=== PATIENT | female | born 1970 | race Caucasian/White ===

== ENCOUNTER 2024-09-08 18:47 | Emergency (ER) | payer MEDICAID, SELFPAY ==
[2024-09-08 18:50] VITALS: BP 151/90; PULSE 93; RESP 17; TEMP 36.5; O2SAT 100; BMI 21.9
[2024-09-08 19:04] VITALS: PULSE 93; RESP 18; O2SAT 98
--- NOTE | 2024-09-08 19:47 | EKG_ITS ---
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
--- NOTE | 2024-09-08 19:49 | XR_ITS ---
Examination: CT abdomen and pelvis without contrast. Coronal 3-D reconstructions. Sagittal 2-D reconstructions. Date and time of exam:September 08, 2024, 2135 hours INDICATIONS: Left lower abdominal pain and bloody diarrhea beginning last night CTDI: vol (mGy): 5.16 DLP: (mGycm): 241 Technique: Axial images of the abdomen have been obtained, 3 mm slice thickness Intravenous contrast material has not been administered. Low dose protocols were performed. One or more of the following dose reduction techniques were used; automated exposure control, adjustment of the mA and/or KV according to patient size, use of iterative reconstruction technique. Findings: No focal liver or splenic lesion No gallstones No pancreatic or adrenal mass No renal or ureteral calculi, no hydronephrosis No pericecal inflammatory change No bowel obstruction Minimal fluid distention small bowel loops Prominent wall thickening and inflammatory change involving the descending colon portions of the transverse colon sigmoid colon No pelvic mass Urinary bladder intact Prominent osteopenia with prominent thoracolumbar levoscoliosis IMPRESSION: Severe nonspecific colitis, involving transverse descending and sigmoid colon, differential would include ulcerative colitis, Crohn's disease, clinical correlation advised
--- NOTE | 2024-09-08 19:50 | PD.EDADULT ---
ED General RME/HPI General Chief complaint: General Adult/Misc Complain Stated complaint: BLOODY DIARRHEA Time Seen by Provider: 09/08/24 19:44 Arrival date/time: 09/08/24 18:47 CC: Left lower quadrant abdominal pain HPI abrupt onset this morning approximately 7 or 8 AM, ongoing for the past 12 hours persistent in nature no p.o. intake. Patient has had persistent nausea vomiting last vomiting was this morning last round of diarrhea was approximately 45 minutes ago. Patient denies any chest pain. Patient has a significant history of clot in her heart , patient history of an MS, seizure disorder and hypertension. 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 Currently pain is an 8 to a 9 on a 10 scale. Related Data Home Medications ?Medication ?Instructions ?Recorded ?Confirmed amlodipine 5 mg tablet 5 mg PO QDAY 08/08/20 08/08/20 carbamazepine 200 mg tablet 200 mg PO TID 08/08/20 08/08/20 (Tegretol) cyclobenzaprine 10 mg tablet 10 mg PO HS PRN Back Pain 08/08/20 08/08/20 lisinopril 20 1 tab PO QDAY 08/08/20 08/08/20 mg-hydrochlorothiazide 12.5 mg tablet Previous Rx's ?Medication ?Instructions ?Recorded ondansetron HCl 4 mg tablet 4 mg PO Q8H PRN nausea and 02/24/21 (Zofran) vomiting #20 tabs meloxicam 7.5 mg tablet 7.5 mg PO QDAY #10 tabs 01/19/22 methocarbamol 500 mg tablet 500 mg PO BID #12 tabs 01/19/22 dicyclomine 20 mg tablet 20 mg PO QID PRN abdominal pain 11/08/22 #30 tabs diclofenac sodium 1 % topical gel 2 g topical QID #100 grams 06/23/23 (Voltaren Arthritis Pain) naproxen 250 mg tablet 250 mg PO BID PRN pain #10 tabs 06/23/23 ibuprofen 600 mg tablet 600 mg PO Q8H PRN fever or pain 10/29/23 #20 tabs levofloxacin 750 mg tablet 750 mg PO QDAY #5 tabs 11/04/23 nitrofurantoin 100 mg PO BID #14 caps 02/27/24 monohydrate/macrocrystals 100 mg capsule (Macrobid) ondansetron 4 mg disintegrating 4 mg PO Q6H PRN nausea and 02/27/24 tablet vomiting #10 tabs ciprofloxacin HCl 500 mg tablet 500 mg PO BID #14 tabs 09/08/24 (Cipro) dicyclomine 20 mg tablet 20 mg PO BID #20 tabs 09/08/24 metronidazole 500 mg tablet 500 mg PO BID #14 tabs 09/08/24 ondansetron 4 mg disintegrating 4 mg PO Q8H #10 tabs 09/08/24 tablet Allergies Allergy/AdvReac Type Severity Reaction Status Date / Time codeine Allergy Severe Vomiting Verified 02/27/24 15:48 Penicillins Allergy Severe Rash Verified 02/27/24 15:48 Review of Systems Review of Systems Narrative Review of Systems: GEN: No fever, no chills, no weight loss EYES: No discharge, no visual changes, no pain HEENT: No ear pain, no congestion, no sore throat PULM: No shortness of breath, no cough, no congestion CV: No chest pain, no dyspnea on exertion, no palpitations GI: No nausea, no vomiting, no diarrhea, + pain, no constipation : No frequency, no urgency, no dysuria MUSC/SKEL: No joint pain, no back pain SKIN: No rash PSYCH: No hallucinations, no depression HEME/LYMPH: No easy bleeding or bruising tendencies NEURO: No weakness, no headache ED Exam Narrative Physical exam: [General: In moderate discomfort but not in any acute distress, tearful Head normocephalic HEENT: Within acceptable limits Neck is supple nontender Chest equal chest rise nontender to palpation Respiratory: Clear to auscultation no wheezes crackles or rubs CV: Rate rhythm is regular no murmurs rubs or clicks Abdomen left lower quadrant tenderness with palpation reflexive guarding but no rebound tenderness no right lower quadrant or upper abdominal quadrant pain with palpation. Back: No CVA tenderness no spinous process tenderness from cervical spine thoracic and lumbar spine Skin: Intact no petechiae rash induration ulceration or crepitus Extremities: Moving all extremity against resistance cap refill less than 2 seconds neurosensory intact Neuro: Awake alert oriented x3 Glascow coma 15 no focal deficits] Course Quality Measures none Orders Category Date Time Status EKG (ED ONLY) *Do not use* NOW Care 09/08/24 19:47 Completed Saline [Insert IV] NOW Care 09/08/24 19:[address] abdomen pelvis wo con Stat Exams 09/08/24 19:49 Completed EKG (ED Only) Stat Exams 09/08/24 19:47 Draft B-Type Natriuretic Peptide Stat Lab 09/08/24 19:59 Completed CBC Stat Lab 09/08/24 19:59 Completed Comprehensive Metabolic Panel Stat Lab 09/08/24 19:59 Completed HCG,Qualitative Serum Stat Lab 09/08/24 19:59 Completed Lipase Stat Lab 09/08/24 19:59 Completed Magnesium Stat Lab 09/08/24 19:59 Completed Partial Thromboplastin Time Stat Lab 09/08/24 22:00 Completed Prothrombin Time with INR Stat Lab 09/08/24 22:00 Completed Ciprofloxacin HCl [Ciprofloxacin] Med 09/08/24 22:19 Discontinued 500 mg PO X1 ONE Morphine Inj Med 09/08/24 19:47 Discontinued 4 mg IVP X1 ONE Ondansetron Inj [Zofran Inj] Med 09/08/24 19:47 Discontinued 4 mg IV X1 ONE Sodium Chloride 0.9% 1000 ml [Ns] 1,000 ml Med 09/08/24 19:48 Discontinued IV 125 mls/hr Sodium Chloride 0.9% 1000 ml [Ns] 1,000 ml Med 09/08/24 19:48 Discontinued IV 999 mls/hr metroNIDAZOLE [Flagyl] Med 09/08/24 22:19 Discontinued 500 mg PO X1 ONE Vital Signs Vital signs: Vital Signs Temperature 97.7 F 09/08/24 18:50 Pulse Rate 93 09/08/24 18:50 Respiratory Rate 17 09/08/24 18:50 Blood Pressure 151/90 H 09/08/24 18:50 Pulse Oximetry (%) 100 09/08/24 18:50 Oxygen Delivery Method Room Air 09/08/24 18:50 [facility] Patient data External records reviewed:: [facility] previous records and EMS form Clinical information provided by:: patient and EMS Social determinants that could affect healthcare access:: none Patient has the following chronic illnesses:: Hypertension A-fib? How is presenting disease/condition affected by chronic disease/condition?: uneffected by Evaluation data The following diagnostics were reviewed and interpreted by me:: lab results, radiology exam(s) and EKG tracing(s) Lab and/or radiology exams considered but not ordered:: EKG performed at 2049 shows a ventricular to 5 4 HI interval 168 QRS of 93 QTc of 391 the sinus bradycardia. CBC shows no leukocytosis anemia thrombocytopenia CMP shows no significant electrolyte imbalances patient is dehydrated with a BUN of 30 creatinine 1.0 no transaminitis or T. bili elevation Lipase is normal Urine is negative CT of the abdomen shows severe colitis. Interpretation Summary: Significant colitis without any leukocytosis. Patient is resting comfortably. Medications Medications considered but not ordered:: None Medication administrations:: Medication Administration History Discontinued Medications Ciprofloxacin (Ciprofloxacin Hcl 250 Mg Tablet) 500 mg PO X1 ONE Stop: 09/08/24 22:20 Last Admin: 09/08/24 22:24 Dose: 500 mg Documented By: YISEL Sodium Chloride (Ns) 1,000 mls @ 999 mls/hr IV .Q1H1M ONE Stop: 09/08/24 20:48 Last Infusion: 09/08/24 21:48 Dose: Infused Documented By: Admin: 09/08/24 20:29 Dose: 999 mls/hr Documented By: YISEL Sodium Chloride (Ns) 1,000 mls @ 125 mls/hr IV .Q8H SANDRA Stop: 10/08/24 19:47 Last Infusion: 09/08/24 21:47 Dose: Infused Documented By: Admin: 09/08/24 20:33 Dose: 125 mls/hr Documented By: YISEL Metronidazole (Metronidazole 250 Mg Tablet) 500 mg PO X1 ONE Stop: 09/08/24 22:20 Last Admin: 09/08/24 22:24 Dose: 500 mg Documented By: YISEL Morphine Sulfate (Morphine Sulf Inj 10 Mg/Ml Vial) 4 mg IVP X1 ONE Stop: 09/08/24 19:48 Last Admin: 09/08/24 20:32 Dose: 4 mg Documented By: YISEL Ondansetron HCl (Ondansetron Inj 2 Mg/Ml Inj 2 Ml) 4 mg IV X1 ONE; Protocol Stop: 09/08/24 19:48 Last Admin: 09/08/24 20:32 Dose: 4 mg Documented By: YISEL None Consultations Consultation(s) initiated? (list below): No Diagnosis Differential Diagnosis ED Complaint MDM: Diverticulosis diverticulitis colitis Most likely diagnosis given after review of the tests above:: Colitis Admission Indicated Admission indicated?: not indicated Explain why admission is indicated or not indicated:: Stable for outpatient follow-up Admission Request Was there a request for admission?: No Disposition Plan Disposition Plan: Discharge Discharge Attestation Discharge Attestation: The patient and all family members were given an opportunity to ask questions and understood the discharge instructions. Discharge instructions specifically effects, indications for sooner follow up or return to the emergency department, and the expected course of current diagnosis. Patient condition: Stable Medical Decision Making Differential Diagnosis Differential Diagnosis: Diverticulosis diverticulitis colitis Lab Data 09/08/24 19:59 09/08/24 19:59 Labs: Lab Results 09/08/24 09/08/24 Range/Units 19:59 22:00 WBC 9.2 (3.6-11.0) Thou/mm3 RBC 4.47 (4.00-5.20) Miln/mm3 Hgb 13.6 (12.0-16.0) g/dL Hct 40.2 (36.0-46.0) % MCV 90 (80-100) fL MCH 30.4 (25.0-35.0) pg MCHC 33.8 (31.0-37.0) g/dl RDW Std Deviation 40.1 (36.4-46.3) fL Plt Count 270 (140-440) Thou/mm3 Neut % (Auto) 72 (37-80) % Lymph % (Auto) 17 (10-50) % Greenlee % (Auto) 10 (0-12) % Eos % (Auto) 1 (0-10) % Baso % (Auto) 0 (0-2.5) % Neut # (Auto) 6.6 (1.8-7.7) Thou/mm3 Lymph # (Auto) 1.6 (1.0-4.8) Thou/mm3 Greenlee # (Auto) 1.0 H (0.0-0.8) Thou/mm3 Eos # (Auto) 0.1 (0.0-0.5) Thou/mm3 Baso # (Auto) 0.0 (0.0-0.2) Thou/mm3 Immature Gran # (Auto) 0.02 H (0.00-0.00) Thou/mm3 Absolute Nucleated RBC 0.00 (0.00-0.00) Thou/mm3 Immature Gran % 0 (0-0) % Nucleated RBC % 0 (0) /100 WBC PT 11.4 (9.0-12.2) Seconds INR 1.0 (0.9-1.3) APTT 22.8 (22.0-36.0) Seconds Sodium 139 (136-145) mMol/L Potassium 4.0 (3.4-5.1) mMol/L Chloride 102 (98-107) mMol/L Carbon Dioxide 29.6 (20.0-31.0) mMol/L Anion Gap 7 (7-16) BUN 30 H (9-23) mg/dL Creatinine 1.0 (0.6-1.3) mg/dL Estim Creat Clear Calc 51.5 L (>60) mL/min eGFR > 60 (60 - ) See Note BUN/Creatinine Ratio 30 H (12-20) Ratio Glucose 105 (74-106) mg/dL Calculated Osmolality 283 (275-295) Calcium 10.1 (8.3-10.6) mg/dL Corrected Calcium 10.1 (8.5-10.1) mg/dL Magnesium 1.6 (1.6-2.6) mg/dL Total Bilirubin 0.4 (0.3-1.2) mg/dL AST 22 (0-34) U/L ALT 19 (10-49) U/L Alkaline Phosphatase 104 (46-116) U/L B-Natriuretic Peptide 32 (0-100) pg/mL Total Protein 7.5 (5.7-8.2) gm/dL Albumin 4.5 (3.5-5.0) gm/dL Globulin 3.0 (2.3-3.5) gm/dL Albumin/Globulin Ratio 1.5 (1.2-2.2) Lipase 28 (12-53) U/L HCG, Qual Negative Discharge Plan Plan Patient Disposition: HOME (Self Care) Patient condition on transfer: Stable Prescriptions/Referrals Prescriptions/Med Rec: New ciprofloxacin HCl [Cipro] 500 mg tablet 500 mg PO BID Qty: 14 0RF metronidazole 500 mg tablet 500 mg PO BID Qty: 14 0RF dicyclomine 20 mg tablet 20 mg PO BID Qty: 20 0RF ondansetron 4 mg tablet,disintegrating 4 mg PO Q8H Qty: 10 0RF No Action cyclobenzaprine [Flexeril] 10 mg Tablet 10 mg PO HS PRN (Reason: Back Pain) lisinopril-hydrochlorothiazide 20-12.5 mg Tablet 1 tab PO QDAY amlodipine 5 mg Tablet 5 mg PO QDAY carbamazepine [Tegretol] 200 mg Tablet 200 mg PO TID methocarbamol 500 mg tablet 500 mg PO BID Qty: 12 0RF meloxicam 7.5 mg tablet 7.5 mg PO QDAY Qty: 10 0RF ondansetron HCl [Zofran] 4 mg tablet 4 mg PO Q8H PRN (Reason: nausea and vomiting) Qty: 20 0RF naproxen 250 mg tablet 250 mg PO BID PRN (Reason: pain) Qty: 10 0RF diclofenac sodium [Voltaren Arthritis Pain] 1 % gel 2 g topical QID Qty: 100 0RF Rx Instructions: apply to single elbow, wrist or hand; for hand includes palm/fingers/back of hand ondansetron 4 mg tablet,disintegrating 4 mg PO Q6H PRN (Reason: nausea and vomiting) Qty: 10 0RF nitrofurantoin monohyd/m-cryst [Macrobid] 100 mg capsule 100 mg PO BID Qty: 14 0RF Rx Instructions: must administer with a meal/food dicyclomine 20 mg tablet 20 mg PO QID PRN (Reason: abdominal pain) Qty: 30 0RF ibuprofen 600 mg tablet 600 mg PO Q8H PRN (Reason: fever or pain) Qty: 20 0RF levofloxacin 750 mg tablet 750 mg PO QDAY Qty: 5 0RF Referrals: Glo Menard PA-C [Primary Care Provider] - In 1 week Problem List Clinical Impression: Diverticulitis Patient/Caregiver Discharge Instructions Education Materials: ED Diet, [place] (Adult), ED Diverticulitis Additional Instructions: Take all the medications as prescribed follow-up with your primary care doctor if there is worsening of symptoms in spite of all the medications return the emergency room for reevaluation. Follow-up bland diet for the next 10 days. Print Language: Spanish Stand Alone Forms: [place] Award Info., Work/School Release, Patient Portal Info Letter NEYDA/JEWEL Supervising Physician DENISE Supervising Physician: Loreto Estrella ENP
[2024-09-08 20:13] LABS: Basophils % (Auto) 0 % (0-2.5); Eosinophils # (Auto) 0.1 Thou/mm3 (0.0-0.5); Eosinophils % (Auto) 1 % (0-10); Hematocrit 40.2 % (36.0-46.0); Hemoglobin 13.6 g/dL (12.0-16.0); Immature Granulocytes % (Auto) 0 % (0-0); Immature Granulocytes Auto 0.02 Thou/mm3 (0.00-0.00); Lymphocytes # (Auto) 1.6 Thou/mm3 (1.0-4.8); Lymphocytes % (Auto) 17 % (10-50); Mean Corpuscular HGB Conc 33.8 g/dl (31.0-37.0); Mean Corpuscular Hemoglobin 30.4 pg (25.0-35.0); Mean Corpuscular Volume 90 fL (80-100); Monocytes % (Auto) 10 % (0-12); Neutrophils # (Auto) 6.6 Thou/mm3 (1.8-7.7); Neutrophils % (Auto) 72 % (37-80); Nucleated Red Blood Cell % 0 /100 WBC (0); Platelet Count 270 Thou/mm3 (140-440); RDW Standard Deviation 40.1 fL (36.4-46.3); Red Blood Count 4.47 Miln/mm3 (4.00-5.20); White Blood Count 9.2 Thou/mm3 (3.6-11.0)
[2024-09-08] MEDS: SODIUM CHLORIDE 0.9% 1000 ML 1,000 ML 999 ML IV (20:29)
[2024-09-08] MEDS: MORPHINE SULF INJ 10 MG/ML VIAL 4 MG IVP (20:32)
[2024-09-08] MEDS: ONDANSETRON INJ 2 MG/ML INJ 2 ML 4 MG IV (20:32)
[2024-09-08] MEDS: SODIUM CHLORIDE 0.9% 1000 ML 1,000 ML 125 ML IV (20:33)
[2024-09-08 20:43] VITALS: BP 156/104; PULSE 94; RESP 18; O2SAT 100
[2024-09-08 20:43] LABS: B-Type Natriuretic Peptide 32 pg/mL (0-100)
[2024-09-08 20:48] LABS: Alanine Aminotransferase 19 U/L (10-49); Albumin, Serum 4.5 gm/dL (3.5-5.0); Albumin/Globulin Ratio 1.5 (1.2-2.2); Alkaline Phosphatase 104 U/L (46-116); Anion Gap 7 (7-16); Aspartate Amino Transferase 22 U/L (0-34); BUN/Creatinine Ratio 30 Ratio (12-20); Bilirubin,Total 0.4 mg/dL (0.3-1.2); Blood Urea Nitrogen 30 mg/dL (9-23); Calcium 10.1 mg/dL (8.3-10.6); Calcium (Corrected) 10.1 mg/dL (8.5-10.1); Carbon Dioxide 29.6 mMol/L (20.0-31.0); Chloride 102 mMol/L (98-107); Estimated Creatinine Clearance 51.5 mL/min (>60); Glucose 105 mg/dL (74-106); Lipase 28 U/L (12-53); Magnesium 1.6 mg/dL (1.6-2.6); Osmolality,Calculated 283 (275-295); Sodium 139 mMol/L (136-145); Total Protein 7.5 gm/dL (5.7-8.2); eGFR > 60 See Note
[2024-09-08 20:55] LABS: HCG,Qualitative Serum Negative
[2024-09-08] MEDS: metroNIDAZOLE 250 MG TABLET 500 MG PO (22:24)
[2024-09-08] MEDS: CIPROFLOXACIN HCL 250 MG TABLET 500 MG PO (22:24)
[2024-09-08 22:38] LABS: Partial Thromboplastin Time 22.8 Seconds (22.0-36.0); Prothrombin Time 11.4 Seconds (9.0-12.2)
[2024-09-08 22:44] VITALS: BP 147/92; PULSE 68; RESP 18; O2SAT 99
== END 2024-09-08 22:57 | disposition home or self-care (01) ==
PROVIDERS: Registered Nurse General Practice; Emergency Provider Emergency Medicine; PCP Physician Assistant
DX: K57.33 Diverticulitis of large intestine without perforation or abscess with bleeding (principal); R00.1 Bradycardia, unspecified
CPT/HCPCS: 36415; 74176; 80053; 80307; 81001; 83690; 83735; 83880; 84703; 85025; 85610; 85730; 93005; 96361; 96374; 96375; 99284; J2270; J2405; J7030; A9270

== ENCOUNTER 2024-10-06 13:21 | Emergency (ER) | payer MEDICAID, SELFPAY ==
[2024-10-06 13:23] VITALS: BMI 21.0
[2024-10-06 13:41] VITALS: BP 115/83; PULSE 115; RESP 18; TEMP 36.5; O2SAT 100
--- NOTE | 2024-10-06 13:46 | EDNOTE_ITS ---
<Statement entered by Delores Christianson MD - 10/10/24 05:26> As co-signing physician, I was present and available for consult prn. I concur with the plan and care as documented by the midlevel provider. ED General RME/HPI General Chief complaint: Nausea/Vomiting/Diarrhea Stated complaint: N/V & NO BM X2 DAYS Time Seen by Provider: 10/06/24 13:45 Arrival date/time: 10/06/24 13:21 CC: Nausea vomiting constipation HPI ongoing for the past 2 days. No active vomiting at time of exam. No local abdominal pain. Noted to be tachycardic. Patient somewhat anxious. Denies street drugs alcohol takes Tegretol no seizures in the recent history. Related Data Home Medications ?Medication ?Instructions ?Recorded ?Confirmed amlodipine 5 mg tablet 5 mg PO QDAY 08/08/20 carbamazepine 200 mg tablet 200 mg PO TID 08/08/20 (Tegretol) cyclobenzaprine 10 mg tablet 10 mg PO HS PRN Back Pain 08/08/20 08/08/20 lisinopril 20 1 tab PO QDAY 08/08/2008/08 mg-hydrochlorothiazide 12.5 mg tablet Previous Rx's ?Medication ?Instructions ?Recorded ondansetron HCl 4 mg tablet 4 mg PO Q8H PRN nausea and 02/24/21 (Zofran) vomiting #20 tabs meloxicam 7.5 mg tablet 7.5 mg PO QDAY #10 tabs 01/09 07/02 methocarbamol 500 mg tablet 500 mg PO BID #12 tabs 05/02 dicyclomine 20 mg tablet 20 mg PO QID PRN abdominal p ain 11/08/22 #30 tabs diclofenac sodium 1 % topical gel 2 g topical QID #100 grams 06/23/23 (Voltaren Arthritis Pain) naproxen 250 mg tablet 250 mg PO BID PRN pain #10 t abs 06/23/23 ibuprofen 600 mg tablet 600 mg PO Q8H PRN fever or p ain 10/29/23 #20 tabs levofloxacin 750 mg tablet 750 mg PO QDAY #5 tabs 10/10 12/02 nitrofurantoin 100 mg PO BID #14 caps 02/26 monohydrate/macrocrystals 100 mg capsule (Macrobid) ondansetron 4 mg disintegrating 4 mg PO Q6H PRN nausea and 02/27/24 tablet vomiting #10 tabs ciprofloxacin HCl 500 mg tablet 500 mg PO BID #14 tabs 09/08/24 (Cipro) dicyclomine 20 mg tablet 20 mg PO BID #20 tabs metronidazole 500 mg tablet 500 mg PO BID #14 tabs ondansetron 4 mg disintegrating 4 mg PO Q8H #10 tabs 0 09/08/24 tablet ciprofloxacin HCl 500 mg tablet 500 mg PO BID #14 tabs 10/06/24 (Cipro) Allergies Allergy/AdvReac Type Severity Reaction Status Date / Time codeine Allergy Severe Vomiting Verified 10/06/24 13:22 Penicillins Allergy Severe Rash Verified 10/06/24 13:22 Review of Systems Review of Systems Narrative Review of Systems: GEN: No fever, no chills, no weight loss EYES: No discharge, no visual changes, no pain HEENT: No ear pain, no congestion, no sore throat PULM: No shortness of breath, no cough, no congestion CV: No chest pain, no dyspnea on exertion, no palpitations GI: + nausea, + vomiting, no diarrhea, no pain, + constipation : No frequency, no urgency, no dysuria MUSC/SKEL: No joint pain, no back pain SKIN: No rash PSYCH: No hallucinations, no depression HEME/LYMPH: No easy bleeding or bruising tendencies NEURO: No weakness, no headache ED Exam Narrative Physical exam: [General: Anxious but not in any acute distress Head normocephalic HEENT: Within acceptable limits Neck is supple nontender Chest equal chest rise nontender to palpation Respiratory: Clear to auscultation no wheezes crackles or rubs CV: Rate rhythm is regular no murmurs rubs or clicks Abdomen is flat, soft nontender no masses positive bowel sounds all 4 quadrants Back: No CVA tenderness no spinous process tenderness from cervical spine thoracic and lumbar spine Skin: Intact no petechiae rash induration ulceration or crepitus Extremities: Moving all extremity against resistance cap refill less than 2 seconds neurosensory intact Neuro: Awake alert oriented x3 Glascow coma 15 no focal deficits] Course Quality Measures none Orders Category Date Time Status Saline [Insert IV] NOW Care 10/06/24 13:45 Active B-Type Natriuretic Peptide Stat Lab 10/06/24 13:56 Completed CBC Stat Lab 10/06/24 13:56 Completed Comprehensive Metabolic Panel Stat Lab 10/06/24 13:56 Completed Drug Screen,Urine Stat Lab 10/06/24 14:00 Completed Lipase Stat Lab 10/06/24 13:56 Completed Magnesium Stat Lab 10/06/24 13:56 Completed Partial Thromboplastin Time Stat Lab 10/06/24 13:56 Completed Prothrombin Time with INR Stat Lab 10/06/24 13:56 Completed Urinalysis Stat Lab 10/06/24 14:00 Completed Ondansetron Odt [Zofran Odt] Med 10/06/24 13:45 Discontinued 4 mg PO X1 ONE Sodium Chloride 0.9% 1000 ml [Ns] 1,000 ml Med 10/06/24 13:46 Discontinued IV 999 mls/hr cefTRIAXone/D5w 1gm IV premix [Rocephin/D5w 1gm IV Med 10/06/24 14:40 Discontinued premix] 1 gm in 50 ml IV X1 Vital Signs Vital signs: Vital Signs Temperature 97.7 F 10/06/24 13:41 Pulse Rate 115 H 10/06/24 13:41 Respiratory Rate 18 10/06/24 13:41 Blood Pressure 115/83 10/06/24 13:41 Pulse Oximetry (%) 100 10/06/24 13:41 Oxygen Delivery Method Room Air 10/06/24 13:41 Discharge Plan Plan Patient Disposition: HOME (Self Care) Patient condition on transfer: Stable Prescriptions/Referrals Prescriptions/Med Rec: New ciprofloxacin HCl [Cipro] 500 mg tablet 500 mg PO BID Qty: 14 0RF No Action cyclobenzaprine [Flexeril] 10 mg Tablet 10 mg PO HS PRN (Reason: Back Pain) lisinopril-hydrochlorothiazide 20-12.5 mg Tablet 1 tab PO QDAY amlodipine 5 mg Tablet 5 mg PO QDAY carbamazepine [Tegretol] 200 mg Tablet 200 mg PO TID methocarbamol 500 mg tablet 500 mg PO BID Qty: 12 0RF meloxicam 7.5 mg tablet 7.5 mg PO QDAY Qty: 10 0RF ondansetron HCl [Zofran] 4 mg tablet 4 mg PO Q8H PRN (Reason: nausea and vomiting) Qty: 20 0RF naproxen 250 mg tablet 250 mg PO BID PRN (Reason: pain) Qty: 10 0RF diclofenac sodium [Voltaren Arthritis Pain] 1 % gel 2 g topical QID Qty: 100 0RF Rx Instructions: apply to single elbow, wrist or hand; for hand includes palm/fingers/back of hand ondansetron 4 mg tablet,disintegrating 4 mg PO Q6H PRN (Reason: nausea and vomiting) Qty: 10 0RF nitrofurantoin monohyd/m-cryst [Macrobid] 100 mg capsule 100 mg PO BID Qty: 14 0RF Rx Instructions: must administer with a meal/food dicyclomine 20 mg tablet 20 mg PO QID PRN (Reason: abdominal pain) Qty: 30 0RF ibuprofen 600 mg tablet 600 mg PO Q8H PRN (Reason: fever or pain) Qty: 20 0RF levofloxacin 750 mg tablet 750 mg PO QDAY Qty: 5 0RF ciprofloxacin HCl [Cipro] 500 mg tablet 500 mg PO BID Qty: 14 0RF metronidazole 500 mg tablet 500 mg PO BID Qty: 14 0RF dicyclomine 20 mg tablet 20 mg PO BID Qty: 20 0RF ondansetron 4 mg tablet,disintegrating 4 mg PO Q8H Qty: 10 0RF Referrals: Glo Menard PA-C [Primary Care Provider] - In 1 week Problem List Clinical Impression: UTI (urinary tract infection), Methamphetamine abuse Patient/Caregiver Discharge Instructions Education Materials: ED Drug Abuse, ED CYSTITIS Female Adult Print Language: Romansh Stand Alone Forms: [place] Award Info., Patient Portal Info Letter PA/JEWEL Supervising Physician PA/JEWEL Supervising Physician: Hernan Estrella ENP MDM Patient Acuity High Acuity (complete MDM) Clinical Information Provided by: patient Medical Records reviewed [facility] Meds/Rx considered, not ordered None Labs/Rad/Tests considered, not ordered None Labs Lab(s) Interpretation(s): CBC shows no acute leukocytosis anemia thrombocytopenia Coags within acceptable limits CMP shows no acute electrolyte imbalances glucose of 108 no transaminitis or T. bili elevation Urine is turbid positive for leukocyte esterase positive for nitrites WBCs at 192 2+ bacteria UDS positive for methamphetamines and marijuana. Imaging Imaging Interpretation(s): UTI with methamphetamine abuse Medication Administration(s) Medication Administration History Discontinued Medications Sodium Chloride (Ns) 1,000 mls @ 999 mls/hr IV .Q1H1M ONE Stop: 10/06/24 14:46 Last Admin: 10/06/24 14:29 Dose: 999 mls/hr Documented By: KF Ceftriaxone Sodium/Dextrose (Rocephin/D5w 1gm Iv Premix) 1 gm in 50 mls @ 100 mls/hr IV X1 ONE Stop: 10/06/24 15:09 Last Infusion: 10/06/24 15:28 Dose: Infused Documented By: Admin: 10/06/24 14:56 Dose: 100 mls/hr Documented By: ARYA Ondansetron HCl (Ondansetron Odt 4 Mg Tabrap) 4 mg PO X1 ONE; Protocol Stop: 10/06/24 13:46 Last Admin: 10/06/24 14:04 Dose: 4 mg Documented By: KF Diagnosis Differential Diagnosis ED Complaint MDM: UTI pyelonephritis methamphetamine abuse
[2024-10-06 14:02] LABS: Basophils % (Auto) 1 % (0-2.5); Eosinophils % (Auto) 1 % (0-10); Hematocrit 43.4 % (36.0-46.0); Hemoglobin 14.7 g/dL (12.0-16.0); Immature Granulocytes % (Auto) 0 % (0-0); Immature Granulocytes Auto 0.01 Thou/mm3 (0.00-0.00); Lymphocytes # (Auto) 2.1 Thou/mm3 (1.0-4.8); Lymphocytes % (Auto) 34 % (10-50); Mean Corpuscular HGB Conc 33.9 g/dl (31.0-37.0); Mean Corpuscular Volume 92 fL (80-100); Monocytes # (Auto) 0.7 Thou/mm3 (0.0-0.8); Monocytes % (Auto) 10 % (0-12); Neutrophils # (Auto) 3.5 Thou/mm3 (1.8-7.7); Neutrophils % (Auto) 55 % (37-80); Nucleated Red Blood Cell % 0 /100 WBC (0); Platelet Count 288 Thou/mm3 (140-440); RDW Standard Deviation 40.9 fL (36.4-46.3); Red Blood Count 4.74 Miln/mm3 (4.00-5.20); White Blood Count 6.3 Thou/mm3 (3.6-11.0)
[2024-10-06] MEDS: ONDANSETRON ODT 4 MG TABRAP PO (14:04)
[2024-10-06 14:16] LABS: Partial Thromboplastin Time 26.3 Seconds (22.0-36.0); Prothrombin Time 11.3 Seconds (9.0-12.2)
[2024-10-06 14:19] LABS: B-Type Natriuretic Peptide < 20 pg/mL (0-100)
[2024-10-06 14:21] LABS: Alanine Aminotransferase 21 U/L (10-49); Albumin, Serum 4.7 gm/dL (3.5-5.0); Albumin/Globulin Ratio 1.4 (1.2-2.2); Alkaline Phosphatase 105 U/L (46-116); Anion Gap 9 (7-16); Aspartate Amino Transferase 24 U/L (0-34); BUN/Creatinine Ratio 19 Ratio (12-20); Bilirubin,Total 0.5 mg/dL (0.3-1.2); Blood Urea Nitrogen 23 mg/dL (9-23); Carbon Dioxide 28.9 mMol/L (20.0-31.0); Chloride 99 mMol/L (98-107); Creatinine (Component) 1.2 mg/dL (0.6-1.3); Estimated Creatinine Clearance 42.9 mL/min (>60); Globulin 3.3 gm/dL (2.3-3.5); Glucose 108 mg/dL (74-106); Lipase 35 U/L (12-53); Magnesium 1.6 mg/dL (1.6-2.6); Osmolality,Calculated 278 (275-295); Potassium 4.2 mMol/L (3.4-5.1); Sodium 137 mMol/L (136-145); eGFR 54 See Note
[2024-10-06 14:26] LABS: Collection Type, Urine Clean Catch
[2024-10-06] MEDS: SODIUM CHLORIDE 0.9% 1000 ML 1,000 ML 999 ML IV (14:29)
[2024-10-06 14:37] LABS: Bacteria,Urine 2+; Bilirubin,Urine Negative (Negative); Blood,Urine Negative (Negative); Clarity,Urine Turbid (Clear/Hazy); Color,Urine Yellow (Lt Yel-Yel); Glucose, Urine Negative (Negative); Ketones,Urine Negative (Negative); Leukocyte Esterase,Urine Positive (Negative); Nitrite,Urine Positive (Negative); PH,Urine 6.5 (5.0-7.0); Protein,Urine Trace (Neg - Trace); RBC,Urine 10 /hpf (0-3); Specific Gravity,Urine 1.027 (1.001-1.035); Squamous Epithelial Cell,Urine 4 /hpf (0-5); Transitional Epi Cells,Urine 1 /hpf (0-5); WBC,Urine 192 /hpf (0-5)
[2024-10-06] MEDS: cefTRIAXone/D5w 1gm IV premix 1 GM/50 ML BAG IV (14:56)
[2024-10-06 15:15] LABS: Amphetamine/Methamp Scrn,U Positive (Negative); Barbiturate Screen,Urine Negative (Negative); Benzodiazepines Screen,Urine Negative (Negative); Benzoylecgonine Screen, Ur Negative (Negative); Fentanyl Screen,Urine Negative (Negative); Opiate Screen,Urine Negative (Negative); THC Screen,Urine Positive (Negative)
== END 2024-10-06 16:03 | disposition home or self-care (01) ==
PROVIDERS: Registered Nurse General Practice; Emergency Provider Emergency Medicine; PCP Physician Assistant
DX: N39.0 Urinary tract infection, site not specified (principal); F15.10 Other stimulant abuse, uncomplicated
CPT/HCPCS: 36415; 80053; 80307; 81001; 83690; 83735; 83880; 85025; 85610; 85730; 96365; 99284; J0696; J7030; Q0162

== ENCOUNTER 2024-12-07 03:23 | Inpatient (IN) | payer MEDICAID, SELFPAY ==
[2024-12-07] VITALS (14 sets, daily range): BP systolic 118–181; BP diastolic 77–112; PULSE 64–92; RESP 16–19; TEMP 34.8–36.8; O2SAT 97–100; BMI 21.7
--- NOTE | 2024-12-07 04:02 | XR_ITS ---
Examination: CT abdomen and pelvis without contrast. Coronal 3-D reconstructions. Sagittal 2-D reconstructions. Date and time of exam:December 07, 2024, 0628 hours Comparison September 08, 2024 INDICATIONS: Onset abdominal pain today, severe nonspecific colitis pattern and CT abdomen pelvis September 08, 2024 CTDI: vol (mGy): 8. DLP: (mGycm): 450 Technique: Axial images of the abdomen have been obtained, 3 mm slice thickness Intravenous contrast material has not been administered. Low dose protocols were performed. One or more of the following dose reduction techniques were used; automated exposure control, adjustment of the mA and/or KV according to patient size, use of iterative reconstruction technique. Findings: No focal liver or splenic lesions No gallstones Thickening of the gastric mucosa in the antrum, coronal image 68 No pancreatic mass No renal or ureteral calculi, no hydronephrosis The entire colon especially descending colon shows wall thickening and inflammatory change on this noncontrast study No bowel obstruction Atrophic uterus Contracted urinary bladder Advanced degenerative disc disease L3-L4 with prominent thoracolumbar levoscoliosis IMPRESSION: Suspicious for antral gastritis, clinical correlation advised Diffuse nonspecific colitis pattern, differential would include Crohn's disease, ulcerative colitis
--- NOTE | 2024-12-07 04:03 | PD.EDRME ---
Rapid Medical Screening Exam RME Arrival date/time: 12/07/24 03:23 Chief Complaint: Abdominal Pain Time Seen by Provider: 12/07/24 03:29 Vital signs: Vital Signs Pulse Rate 84 12/07/24 03:52 Respiratory Rate 18 12/07/24 03:52 Blood Pressure 118/77 12/07/24 03:52 Pulse Oximetry (%) 98 12/07/24 03:52 Oxygen Delivery Method Room Air 12/07/24 03:52 RME Narrative: generalized abdominal pain x1 hour
[2024-12-07] MEDS: HYDROcodone/APAP 7.5/325 TABLET 1 TAB PO (04:17)
[2024-12-07] MEDS: ONDANSETRON ODT 4 MG TABRAP PO (04:17)
[2024-12-07 05:00] LABS: Basophils # (Auto) 0.1 Thou/mm3 (0.0-0.2); Basophils % (Auto) 0 % (0-2.5); Eosinophils # (Auto) 0.1 Thou/mm3 (0.0-0.5); Eosinophils % (Auto) 0 % (0-10); Hematocrit 47.6 % (36.0-46.0); Hemoglobin 16.0 g/dL (12.0-16.0); Immature Granulocytes Auto 0.07 Thou/mm3 (0.00-0.00); Lymphocytes # (Auto) 1.9 Thou/mm3 (1.0-4.8); Lymphocytes % (Auto) 11 % (10-50); Mean Corpuscular HGB Conc 33.6 g/dl (31.0-37.0); Mean Corpuscular Hemoglobin 30.5 pg (25.0-35.0); Mean Corpuscular Volume 91 fL (80-100); Monocytes # (Auto) 1.4 Thou/mm3 (0.0-0.8); Monocytes % (Auto) 8 % (0-12); Neutrophils # (Auto) 14.3 Thou/mm3 (1.8-7.7); Neutrophils % (Auto) 80 % (37-80); Nucleated Red Blood Cell # 0.00 Thou/mm3 (0.00-0.00); Nucleated Red Blood Cell % 0 /100 WBC (0); Platelet Count 307 Thou/mm3 (140-440); RDW Standard Deviation 42.9 fL (36.4-46.3); Red Blood Count 5.24 Miln/mm3 (4.00-5.20); White Blood Count 17.8 Thou/mm3 (3.6-11.0)
[2024-12-07 05:06] LABS: Collection Type, Urine Clean Catch
[2024-12-07 05:26] LABS: Alanine Aminotransferase 44 U/L (10-49); Albumin, Serum 4.8 gm/dL (3.5-5.0); Albumin/Globulin Ratio 1.5 (1.2-2.2); Alkaline Phosphatase 125 U/L (46-116); Anion Gap 9 (7-16); Aspartate Amino Transferase 45 U/L (0-34); BUN/Creatinine Ratio 23 Ratio (12-20); Bilirubin,Total 0.3 mg/dL (0.3-1.2); Blood Urea Nitrogen 32 mg/dL (9-23); Calcium 10.4 mg/dL (8.3-10.6); Calcium (Corrected) 10.4 mg/dL (8.5-10.1); Carbon Dioxide 28.6 mMol/L (20.0-31.0); Chloride 100 mMol/L (98-107); Creatinine (Component) 1.4 mg/dL (0.6-1.3); Estimated Creatinine Clearance 36.8 mL/min (>60); Globulin 3.2 gm/dL (2.3-3.5); Glucose 157 mg/dL (74-106); Lipase 40 U/L (12-53); Osmolality,Calculated 285 (275-295); Potassium 4.4 mMol/L (3.4-5.1); Sodium 138 mMol/L (136-145); Total Protein 8.0 gm/dL (5.7-8.2); eGFR 45 See Note
[2024-12-07 05:28] LABS: Bacteria,Urine Rare; Bilirubin,Urine Negative (Negative); Blood,Urine Negative (Negative); Clarity,Urine Clear (Clear/Hazy); Color,Urine Yellow (Lt Yel-Yel); Glucose, Urine Negative (Negative); Ketones,Urine Negative (Negative); Leukocyte Esterase,Urine Positive (Negative); Nitrite,Urine Negative (Negative); PH,Urine 5.5 (5.0-7.0); Protein,Urine Negative (Neg - Trace); RBC,Urine 2 /hpf (0-3); Specific Gravity,Urine 1.015 (1.001-1.035); Squamous Epithelial Cell,Urine 10 /hpf (0-5); Urobilinogen,Urine Negative mg/dL (0.0-1.0); WBC,Urine 17 /hpf (0-5)
[2024-12-07 06:12] LABS: HCG Qualitative,Urine Negative
[2024-12-07] MEDS: ONDANSETRON INJ 2 MG/ML INJ 2 ML 4 MG IVP (07:24)
[2024-12-07] MEDS: MORPHINE SULF INJ 10 MG/ML VIAL 2 MG IVP ×3 (07:24→14:49)
[2024-12-07] MEDS: SODIUM CHLORIDE 0.9% 1000 ML 1,000 ML 999 ML IV (07:25)
[2024-12-07 07:39] LABS: Amphetamine/Methamp Scrn,U Positive (Negative); Barbiturate Screen,Urine Negative (Negative); Benzodiazepines Screen,Urine Negative (Negative); Benzoylecgonine Screen, Ur Negative (Negative); Fentanyl Screen,Urine Negative (Negative); Opiate Screen,Urine Negative (Negative); THC Screen,Urine Positive (Negative)
[2024-12-07 08:16] LABS: Lactate (Lactic Acid) 1.7 mMol/L (0.4-2.0)
--- NOTE | 2024-12-07 08:18 | PD.EDABDPN ---
ED Abdominal Pain RME/HPI General Chief Complaint: Abdominal Pain Stated complaint: ABD PAIN Time seen by provider: 12/07/24 03:29 Arrival date/time: 12/07/24 03:23 This is a case of a 54-year-old female with history of cystitis and diverticulitis in the past came in in the emergency room due to generalized abdominal pain associated with nausea vomiting worsening of the symptoms this patient decided to start consult here in the emergency room patient states that she has a subjective fever and chills at home Source: patient Limitations: no limitations RME / HPI RME / HPI narrative: generalized abdominal pain x1 hour Related Data Home Medications ?Medication ?Instructions ?Recorded ?Confirmed amlodipine 5 mg tablet 5 mg PO QDAY 08/08/20 08/08/20 carbamazepine 200 mg tablet 200 mg PO TID 08/08/20 08/08/20 (Tegretol) cyclobenzaprine 10 mg tablet 10 mg PO HS PRN Back Pain 08/08/20 08/08/20 lisinopril 20 1 tab PO QDAY 08/08/20 08/08/20 mg-hydrochlorothiazide 12.5 mg tablet Previous Rx's ?Medication ?Instructions ?Recorded ondansetron HCl 4 mg tablet 4 mg PO Q8H PRN nausea and 02/24/21 (Zofran) vomiting #20 tabs meloxicam 7.5 mg tablet 7.5 mg PO QDAY #10 tabs 01/19/22 methocarbamol 500 mg tablet 500 mg PO BID #12 tabs 01/19/22 dicyclomine 20 mg tablet 20 mg PO QID PRN abdominal pain 11/08/22 #30 tabs diclofenac sodium 1 % topical gel 2 g topical QID #100 grams 06/23/23 (Voltaren Arthritis Pain) naproxen 250 mg tablet 250 mg PO BID PRN pain #10 tabs 06/23/23 ibuprofen 600 mg tablet 600 mg PO Q8H PRN fever or pain 10/29/23 #20 tabs levofloxacin 750 mg tablet 750 mg PO QDAY #5 tabs 11/04/23 nitrofurantoin 100 mg PO BID #14 caps 02/27/24 monohydrate/macrocrystals 100 mg capsule (Macrobid) ondansetron 4 mg disintegrating 4 mg PO Q6H PRN nausea and 02/27/24 tablet vomiting #10 tabs ciprofloxacin HCl 500 mg tablet 500 mg PO BID #14 tabs 09/08/24 (Cipro) dicyclomine 20 mg tablet 20 mg PO BID #20 tabs 09/08/24 metronidazole 500 mg tablet 500 mg PO BID #14 tabs 09/08/24 ondansetron 4 mg disintegrating 4 mg PO Q8H #10 tabs 09/08/24 tablet ciprofloxacin HCl 500 mg tablet 500 mg PO BID #14 tabs 10/06/24 (Cipro) Allergies Allergy/AdvReac Type Severity Reaction Status Date / Time codeine Allergy Severe Vomiting Verified 12/07/24 03:30 Penicillins Allergy Severe Rash Verified 12/07/24 03:30 Review of Systems Review of Systems Systems Reviewed: All systems reviewed, normal except as documented Constitutional Constitutional: Reports system reviewed and no additional complaints, except as documented, Reports as per HPI, Reports chills and Reports fever(s) ENT Ears, Nose, Mouth, and Throat: Denies dysphagia and Denies odynophagia Cardiovascular Cardiovascular: Reports system reviewed and no additional complaints, except as documented and Reports as per HPI Respiratory Respiratory: Reports system reviewed and no additional complaints, except as documented and Reports as per HPI Gastrointestinal Gastrointestinal: Reports system reviewed and no additional complaints, except as documented, Reports abdominal pain, Denies belching, Denies bloating, Denies change in bowel habits, Denies change in stool character, Denies coffee ground emesis, Denies constipation, Denies cramping, Denies diarrhea, Denies dyspepsia, Denies dysphagia, Denies early satiety, Denies excessive flatus, Denies fecal incontinence, Denies heartburn, Denies hematemesis, Denies hematochezia, Denies loose stools, Denies melena, Reports nausea, Denies odynophagia, Denies tenesmus and Reports vomiting Genitourinary Genitourinary: Reports system reviewed and no additional complaints, except as documented and Reports as per HPI Musculoskeletal Musculoskeletal: Reports system reviewed and no additional complaints, except as documented and Reports as per HPI Neurologic Neurologic: Reports system reviewed and no additional complaints, except as documented and Reports as per HPI Past Medical History Past Medical History NEUROLOGIC: Positive Neurological Disorders and Seizures CARDIAC: Positive Cardiac Disorders and Hypertension; Negative Congestive Heart Failure RESPIRATORY: Negative Chronic Obstructive Pulmonary Disease (COPD) or Asthma GENITOURINARY: Negative Renal Disease MUSCULOSKELETAL: Positive Musculoskeletal Disorders and Scoliosis ENDOCRINE: Negative Diabetes Mellitus Type 1 or Diabetes Mellitus Type 2 HEMATOLOGIC: Negative Sickle Cell Disease Surgical History SURGICAL: Negative Endocrine Surgery, Abdominal Surgery or Nephrectomy Social History SMOKING STATUS: Current some day smoker SUBSTANCE USE: does not use ED Exam General Limitations: Present no limitations General appearance: Present alert and in no apparent distress Head Head exam: Present atraumatic, normocephalic and normal inspection Eye Eye exam: Present normal appearance, PERRL and EOMI ENT ENT exam: Present normal exam, normal oropharynx and mucous membranes moist Neck Neck exam: Present normal inspection, full ROM and trachea midline; Absent tenderness, meningismus, lymphadenopathy or thyromegaly Chest Chest inspection: Present normal inspection and symmetric chest wall rise Respiratory Respiratory exam: Present normal lung sounds bilaterally; Absent respiratory distress, wheezes, stridor, accessory muscle use or prolonged expiratory phase Cardiovascular Cardiovascular exam: Present regular rate and normal rhythm; Absent bradycardia, tachycardia, normal heart sounds or systolic murmur Abdominal Exam Abdominal exam: Present soft, tenderness (Mild generalized tenderness on all quadrants of the abdomen) and normal bowel sounds; Absent distention, guarding, rebound, rigidity, diminished bowel sounds, hyperactive bowel sounds, hypoactive bowel sounds, organomegaly, trauma, incision, psoas sign, obturator sign, heel tap sign, Mancilla's sign, Rovsing's sign, tenderness at McBurney's Point, ascites, mass, bruit, pulsatile mass, hernia or scar Abdominal tenderness: Present RUQ, RLQ, LUQ, LLQ and mild Extremities Exam Extremities exam: Present normal inspection, full ROM and normal capillary refill; Absent tenderness, pedal edema, joint swelling or calf tenderness Back Exam Back exam: Present normal inspection and full ROM Neurological Exam Neurological exam: Present alert, oriented X3, CN II-XII intact, normal gait and reflexes normal; Absent motor sensory deficit Psychiatric Psychiatric exam: Present normal affect and normal mood Skin Skin exam: Present warm, dry, intact and normal color Course Quality Measures none Orders Category Date Time Status COVID-19 Screening Questionnaire NOW Care 12/07/24 08:14 Active Decision to Admit X1 Care 12/07/24 08:14 Active Consult to Gastroenterology Stat Cons 12/07/24 08:[address] abdomen pelvis wo con Stat Exams 12/07/24 04:02 Completed Blood Culture (Lab) Stat Lab 12/07/24 07:50 Received CBC Stat Lab 12/07/24 04:35 Completed CMP [Comprehensive Metabolic Panel] Stat Lab 12/07/24 04:35 Completed Drug Screen,Urine Stat Lab 12/07/24 04:32 Completed HCG Qualitative,Urine Stat Lab 12/07/24 04:32 Completed Lactate (Lactic Acid) Stat Lab 12/07/24 07:50 Received Lipase Stat Lab 12/07/24 04:35 Completed UA [Urinalysis] Stat Lab 12/07/24 04:32 Completed HYDROcodone*/APAP 7.5/325 [Baring 7.5/325] Med 12/07/24 04:02 Discontinued 1 tab PO X1 ONE Levofloxacin/D5w 750Mg Ivpb [Levaquin Ivpb] Med 12/07/24 08:10 Active 750 mg in 150 ml IV NOW Morphine Inj Med 12/07/24 06:46 Active 2 mg IVP Q1H PRN Ondansetron Inj [Zofran Inj] Med 12/07/24 06:43 Discontinued 4 mg IVP X1 ONE Ondansetron Odt [Zofran Odt] Med 12/07/24 04:02 Discontinued 4 mg PO X1 ONE Sodium Chloride 0.9% 1000 ml [Ns] 1,000 ml Med 12/07/24 06:44 Discontinued IV 999 mls/hr metroNIDAZOLE/NS 500 MG IVPB [Flagyl 500 mg IV] Med 12/07/24 08:10 Active 500 mg in 100 ml IV NOW Vital Signs Vital signs: Vital Signs Pulse Rate 84 12/07/24 03:52 Respiratory Rate 18 12/07/24 03:52 Blood Pressure 118/77 12/07/24 03:52 Pulse Oximetry (%) 98 12/07/24 03:52 Oxygen Delivery Method Room Air 12/07/24 03:52 Patient is afebrile not tachycardic not tachypneic not hypoxic oxygen saturation is 98% on room air normal Abdominal Pain MDM MDM Narrative MDM Narrative:: This is a case of a 54-year-old female with history of cystitis and diverticulitis in the past came in in the emergency room due to generalized abdominal pain associated with nausea vomiting worsening of the symptoms this patient decided to start consult here in the emergency room patient states that she has a subjective fever and chills at home physical examination patient is awake alert oriented not in distress nontoxic looking vital signs stable BP is high 161/115 not tachycardic not tachypneic not hypoxic afebrile patient abdominal exam noted mild tenderness on whole quadrant of the abdomen no guarding no rebound no rigidity negative psoas negative obturator negative Rovsing's negative Joanne's negative Mancilla sign negative CVA tenderness blood test showed leukocytosis WBC of 17,000 pending blood culture and lactic acid no anemia platelets normal kidney function noted to be elevated BUN is 3.2 creatinine is 1.4 liver function is normal urinalysis shows WBC and urine possible cystitis patient CT scan showed antral gastritis and ulcerative colitis based on the result of the blood test and CT scan I discussed with Dr. Caraballo patient condition history and physical examination relayed the blood test and CT scan ordered to admit patient and he will be the GI consult he also ordered me to start patient on Levaquin and metronidazole I spoke to Dr. Phipps discussed patient condition history and physical examination relayed result of blood test and CT scan and agreed and accept the patient care for admit Patient data External records reviewed:: [facility] previous records Clinical information provided by:: patient Social determinants that could affect healthcare access:: none Patient has the following chronic illnesses:: None How is presenting disease/condition affected by chronic disease/condition?: no chronic disease Evaluation data The following diagnostics were reviewed and interpreted by me:: lab results and radiology exam(s) Lab and/or radiology exams considered but not ordered:: Reviewed Interpretation Summary: Reviewed Medications / Prescriptions Medications or Prescriptions considered but not ordered:: Given Medication administrations:: Medication Administration History Levofloxacin/Dextrose (Levaquin Ivpb) 750 mg in 150 mls @ 100 mls/hr IV NOW ONE Stop: 12/07/24 09:39 Metronidazole (Flagyl 500 Mg Iv) 500 mg in 100 mls @ 200 mls/hr IV NOW ONE Stop: 12/07/24 08:39 Morphine Sulfate (Morphine Sulf Inj 10 Mg/Ml Vial) 2 mg IVP Q1H PRN PRN Reason: PAIN (MENSTRUAL) Last Admin: 12/07/24 07:24 Dose: 2 mg Documented By: VL Discontinued Medications Hydrocodone Bitart/Acetaminophen (Hydrocodone/Apap 7.5/325 Tablet) 1 tab PO X1 ONE Stop: 12/07/24 04:03 Last Admin: 12/07/24 04:17 Dose: 1 tab Documented By: CVL Sodium Chloride (Ns) 1,000 mls @ 999 mls/hr IV .Q1H1M ONE Stop: 12/07/24 07:44 Last Admin: 12/07/24 07:25 Dose: 999 mls/hr Documented By: NICO Ondansetron HCl (Ondansetron Odt 4 Mg Tabrap) 4 mg PO X1 ONE; Protocol Stop: 12/07/24 04:03 Last Admin: 12/07/24 04:17 Dose: 4 mg Documented By: CVL Ondansetron HCl (Ondansetron Inj 2 Mg/Ml Inj 2 Ml) 4 mg IVP X1 ONE; Protocol Stop: 12/07/24 06:44 Last Admin: 12/07/24 07:24 Dose: 4 mg Documented By: NICO Given Consultations Consultation(s) initiated? (list below): Yes Consultation #1 (Physician, Specialty, Details): Dr. Caraballo discussed patient condition history and physical examination accept patient GI consult for admission Time: 08:00 Time: 08:10 Consultation #3 (Physician, Specialty, Details): Dr. Phipps discussed patient condition history and physical examination agreed patient care and accept admission Diagnosis Differential diagnosis abdominal pain: abdominal pain, acute appendicitis, calculus of kidney, diverticulitis, gastroenteritis, pancreatitis and small bowel obstruction Most likely diagnosis given after review of the tests above:: Diverticulitis ulcerative colitis Admission Indicated Admission indicated?: indicated Admission Request Was there a request for admission?: Yes Admission Attestation Admission request attestation: Discussed case with [] from Hospitalist service regarding admission. Discussed patients ED course, exam findings, labs, and radiology results. The Hospitalist [agrees,declines] to accept the patient for admission. Disposition Plan Disposition Plan: Admit Discharge Plan Plan Patient Disposition: Admit Acute Care w/in Hospital Patient condition on transfer: Stable Prescriptions/Referrals Prescriptions/Med Rec: No Action cyclobenzaprine [Flexeril] 10 mg Tablet 10 mg PO HS PRN (Reason: Back Pain) lisinopril-hydrochlorothiazide 20-12.5 mg Tablet 1 tab PO QDAY amlodipine 5 mg Tablet 5 mg PO QDAY carbamazepine [Tegretol] 200 mg Tablet 200 mg PO TID methocarbamol 500 mg tablet 500 mg PO BID Qty: 12 0RF meloxicam 7.5 mg tablet 7.5 mg PO QDAY Qty: 10 0RF ondansetron HCl [Zofran] 4 mg tablet 4 mg PO Q8H PRN (Reason: nausea and vomiting) Qty: 20 0RF naproxen 250 mg tablet 250 mg PO BID PRN (Reason: pain) Qty: 10 0RF diclofenac sodium [Voltaren Arthritis Pain] 1 % gel 2 g topical QID Qty: 100 0RF Rx Instructions: apply to single elbow, wrist or hand; for hand includes palm/fingers/back of hand ondansetron 4 mg tablet,disintegrating 4 mg PO Q6H PRN (Reason: nausea and vomiting) Qty: 10 0RF nitrofurantoin monohyd/m-cryst [Macrobid] 100 mg capsule 100 mg PO BID Qty: 14 0RF Rx Instructions: must administer with a meal/food ciprofloxacin HCl [Cipro] 500 mg tablet 500 mg PO BID Qty: 14 0RF dicyclomine 20 mg tablet 20 mg PO QID PRN (Reason: abdominal pain) Qty: 30 0RF ibuprofen 600 mg tablet 600 mg PO Q8H PRN (Reason: fever or pain) Qty: 20 0RF levofloxacin 750 mg tablet 750 mg PO QDAY Qty: 5 0RF ciprofloxacin HCl [Cipro] 500 mg tablet 500 mg PO BID Qty: 14 0RF metronidazole 500 mg tablet 500 mg PO BID Qty: 14 0RF dicyclomine 20 mg tablet 20 mg PO BID Qty: 20 0RF ondansetron 4 mg tablet,disintegrating 4 mg PO Q8H Qty: 10 0RF Referrals: Glo Menard PA-C [Primary Care Provider] - In 1 week Problem List Clinical Impression: Abdominal pain, Ulcerative colitis, Antral gastritis, Cystitis Patient/Caregiver Discharge Instructions Education Materials: Abdominal Pain Print Language: Icelandic Stand Alone Forms: [place] Award Info., Patient Portal Info Letter PA/[employer] Supervising Physician PA/[employer] Supervising Physician: dr welch
[2024-12-07] MEDS: metroNIDAZOLE/NS 500 MG IVPB 500 MG/100 ML BAG 200 MG IV ×3 (08:19→21:28)
[2024-12-07] MEDS: LEVOFLOXACIN/D5W 750MG IVPB 750 MG/150 ML BAG 100 MG IV (08:58)
--- NOTE | 2024-12-07 10:33 | ECHO_ITS ---
Transthoracic Echo Report Ht (in): 62 Wt (lb): 119 Exam Location: Echo Lab Status: Emergency Reach Truck Operator: Yolanda Blood Indications: Procedure Performed: BP: 171 / 99 HR: 73 Technical Quality: Adequate MEASUREMENTS (Male / Female) Normal Values 2D ECHO LV Diastolic Diameter PLAX 3.6 cm 4.2 - 5.9 / 3.9 - 5.3 cm LV Systolic Diameter PLAX 2.6 cm IVS Diastolic Thickness 0.8 cm 0.6 - 1.0 / 0.6 - 0.9 cm LVPW Diastolic Thickness 1.1 cm 0.6 - 1.0 / 0.6 - 0.9 cm LV Relative Wall Thickness 0.5 LVOT Diameter 2.0 cm LA Volume Index 37.9 cm?/m? 16 - 28 cm?/m? Ascending Aorta Diameter 2.8 cm DOPPLER AV Peak Velocity 132.0 cm/s AV Peak Gradient 7.0 mmHg LVOT Peak Velocity 110.0 cm/s LVOT Peak Gradient 4.8 mmHg AV Area Cont Eq pk 2.6 cm? MV Area PHT 3.1 cm? Mitral E Point Velocity 76.6 cm/s Mitral A Point Velocity 87.3 cm/s Mitral E to A Ratio 0.9 LV E' Lateral Velocity 7.0 cm/s Mitral E to LV E' Lateral Ratio 11.0 LV E' Septal Velocity 6.1 cm/s Mitral E to LV E' Septal Ratio 12.6 PV Peak Velocity 105.0 cm/s PV Peak Gradient 4.4 mmHg FINDINGS Left Ventricle Normal left ventricular size, wall thickness, systolic function with no obvious regional wall motion abnormalities. Normal left ventricular diastolic filling pattern for age. The ejection fraction is visually estimated at 65 %. Right Ventricle The right ventricle is normal in size and systolic function. The estimated right ventricular systolic pressure can not be determined due to innadequate tricuspid signal. Left Atrium The left atrial cavity size is mildly increased. Right Atrium The right atrium is normal by two-dimensional imaging, color flow and Doppler imaging with no structural abnormalities, no thrombus formation present. Atrial Septum The interatrial septum appears normal with no evidence of a shunt. Aorta The aorta is normal by two-dimensional, color flow and Doppler interrogation. Mitral Valve The mitral valve is normal by two-dimensional, color flow and Doppler interrogation. There is mild mitral regurgitation. Aortic Valve The aortic valve is trileaflet and normal by two-dimensional, color flow and Doppler interrogation. There is no significant aortic valve regurgitation. Tricuspid Valve The tricuspid valve is normal by two-dimensional, color flow and Doppler interrogation. There is no significant tricuspid valve regurgitation. Pulmonic Valve The pulmonic valve is not well visualized. There is no significant pulmonic valve regurgitation. Vessels The pulmonary artery appears normal. The inferior vena cava pulmonary and hepatic veins appear normal. Pericardium The pericardium is normal by two-dimensional imaging. There is no significant pericardial effusion. CONCLUSIONS Indications: History of [place] LV Normal. Estimated EF 65%. Normal Diastology. RV Normal. Mild MR. No Pericardial Effusion. Jacqueline Ramos (Electronically Signed) Final Date: 09 December 2024 11:47
--- NOTE | 2024-12-07 10:38 | ESHP_ITS ---
<Statement entered by Massiel Nobles MD - 12/08/24 17:16> I Massiel Nobles MD reviewed the note and agree with the resident's assessment & plan with exceptions as below. I have personally reviewed labs, imaging, home meds/prior records, examined the patient, formulated and discussed management plan with the IM team. A 54-year-old female presented to ED with abdominal pain and recurrent vomiting. CT scan did reveal colitis patient also noted to have LOLA. Started on aggressive IV fluid resuscitation, empiric antibiotic treatment with levofloxacin and metronidazole. Follow-up with GI regarding potential colonoscopy as patient had recurrent colitis in the last 6 months. Continue supportive care, n.p.o. for now will gradually start on clear liquid diet and advance as tolerated. Documentation for date of: 12/07/24 HPI History of Present Illness Chief complaint: abdominal pain History of present illness: Smita Jalloh is 54 yr female with PMH of HNT, seizure disorder, and polysubstance drug use presenting to [facility] ED 12/07/24 with chief complaint of severe, diffuse, dull abdominal pain since last night. Pain is 6/10 and associated with bloody diarrhea. She has experienced this pain 1 month ago but never worked up for it. Denies any colonoscopies in the past. Endorses some nausea, no significant change in diet, no recent travel, no sick contacts, no dysuria. She had an [place] one year ago and was transferred to [facility] where she had anigogram done. Per patient, there was some blockage but she does not recall getting any stents placed. [facility] is also located in [place]. Last week was a follow up appointment that she missed due to transportation issues. Stool formation and consistency has otherwise remained the same. In ED,Vitals are stable. Leukocytosis 18, stable hemoglobin at 16, mild LOLA with creatinine 1.4 (baseline appears to be around 1.0), BUN 32, glucose was 157. UA positive for UTI with WBC 17 leukocyte esterase, U tox positive for methamphetamine and THC. CT abdomen pelvis revealed colon wall thickening and inflammatory changes on noncontrast study. GI Dr. Caraballo consulted and patient was admitted for management of colitis and LOLA. PMH: As noted above PSH: Back surgery for scoliosis repair Family Hx: Mother history of kidney disease and [place]. Father has history of [place] Social: Currently staying with a friend but otherwise is homeless. Endorses smoking marijuana, denies alcohol use, previous history of smoking but quit 1 year ago after her heart attack. Denied illicit drug use but U tox positive for methamphetamines. Meds: Amlodipine 5 mg daily, Coreg 3.125mg BID, lisinopril?HCTZ 20 12.5 daily, carbamazepine 200 mg TID Allergies: Codeine and penicillins Review of Systems Review of Systems Systems Reviewed: All systems reviewed, normal except as documented Exam Vital Signs Temp Pulse Resp BP Pulse Ox O2 Del Method 94.6 F L 72 18 159/97 H 97 Room Air 12/07/24 06:47 12/07/24 09:00 12/07/24 09:00 12/07/24 09:00 12/07/24 09:00 12/07/24 09:00 Narrative Exam General: Middle age female, distress from pain, cooperative, teary eyed HEENT: NCAT, No JVD noted. Mucosa dry. Pupils are equal and reactive to light bilaterally Cardiovascular: Normal S1 and S2. Regular rate and rhythm. Respiratory: Lungs are clear to auscultation bilaterally. No wheezing or crackles heard. Abdomen: Soft, diffuse tenderness, not distended, normal bowel sounds. Skin: Warm to touch, dry, no rashes noted Musculoskeletal: No gross injuries. Able to move all 4 extremities. No pitting edema Neuro: Alert and oriented x3. No focal neuro deficits. Psych: disheveled, sad mood Results: Labs 12/07/24 04:35 12/07/24 04:35 Labs: Short CBC 12/07/24 Range/Units 04:35 WBC 17.8 H (3.6-11.0) Thou/mm3 Hgb 16.0 (12.0-16.0) g/dL Hct 47.6 H (36.0-46.0) % Plt Count 307 (140-440) Thou/mm3 BMP 12/07/24 04:35 Sodium 138 Potassium 4.4 Chloride 100 Carbon Dioxide 28.6 BUN 32 H Creatinine 1.4 H Glucose 157 H Calcium 10.4 Liver Function 12/07/24 Range/Units 04:35 Total Bilirubin 0.3 (0.3-1.2) mg/dL AST 45 H (0-34) U/L ALT 44 (10-49) U/L Alkaline Phosphatase 125 H (46-116) U/L Albumin 4.8 (3.5-5.0) gm/dL Urine 12/07/24 Range/Units 04:32 Urine Color Yellow (Lt Yel-Yel) Urine Clarity Clear (Clear/Hazy) Urine pH 5.5 (5.0-7.0) Ur Specific [place] 1.015 (1.001-1.035) Urine Protein Negative (Neg - Trace) Urine Glucose (UA) Negative (Negative) Quality Measures Quality Measures none Medications Home Medications and Allergies Home Medications ?Medication ?Instructions ?Recorded ?Confirmed ?Type amlodipine 5 mg tablet 5 mg PO QDAY 08/08/20 History carbamazepine 200 mg tablet 200 mg PO TID 08/08/20 History (Tegretol) cyclobenzaprine 10 mg tablet 10 mg PO HS PRN Back Pain 08/08/20 08/08/20 History lisinopril 20 1 tab PO QDAY 08/08/2012/07 History mg-hydrochlorothiazide 12.5 mg tablet carvedilol 3.125 mg tablet 3.125 mg PO Q12H 12/07/24 0 12/07/24 History magnesium oxide 400 mg (241.3 mg mg 12/07/24 History magnesium) tablet Allergies Allergy/AdvReac Type Severity Reaction Status Date / Time codeine Allergy Severe Vomiting Verified 12/07/24 03:30 Penicillins Allergy Severe Rash Verified 12/07/24 03:30 Visit Medications Acetaminophen (Acetaminophen 325 Mg Tablet) 650 mg PO Q6H PRN PRN Reason: Fever >100.3 or pain 1-3 Stop: 01/06/25 10:27 Heparin Sodium (Porcine) (Heparin Sod Inj 5000 Unit/Ml Vial) 5,000 unit SC BID SANDRA Stop: 12/21/24 10:44 Lactulose (Lactulose Syrup 20 Gm/30 Ml Udc) 10 gm PO QDAY PRN; Protocol PRN Reason: constipation Stop: 01/07/25 08:59 Morphine Sulfate (Morphine Sulf Inj 10 Mg/Ml Vial) 2 mg IVP Q1H PRN PRN Reason: PAIN (MENSTRUAL) Last Admin: 12/07/24 08:57 Dose: 2 mg Ondansetron HCl (Ondansetron Inj 2 Mg/Ml Inj 2 Ml) 4 mg IVP Q6H PRN; Protocol PRN Reason: NAUSEA OR VOMITING Stop: 01/06/25 10:27 Pantoprazole Sodium (Pantoprazole Inj 40 Mg Vial) 40 mg IVP QDAY SANDRA Stop: 01/06/25 10:44 Discontinued Medications Hydrocodone Bitart/Acetaminophen (Hydrocodone/Apap 7.5/325 Tablet) 1 tab PO X1 ONE Stop: 12/07/24 04:03 Last Admin: 12/07/24 04:17 Dose: 1 tab Sodium Chloride (Ns) 1,000 mls @ 999 mls/hr IV .Q1H1M ONE Stop: 12/07/24 07:44 Last Infusion: 12/07/24 08:31 Dose: Infused Levofloxacin/Dextrose (Levaquin Ivpb) 750 mg in 150 mls @ 100 mls/hr IV NOW ONE Stop: 12/07/24 09:39 Last Admin: 12/07/24 08:58 Dose: 100 mls/hr Metronidazole (Flagyl 500 Mg Iv) 500 mg in 100 mls @ 200 mls/hr IV NOW ONE Stop: 12/07/24 08:39 Last Infusion: 12/07/24 08:50 Dose: Infused Ondansetron HCl (Ondansetron Odt 4 Mg Tabrap) 4 mg PO X1 ONE; Protocol Stop: 12/07/24 04:03 Last Admin: 12/07/24 04:17 Dose: 4 mg Ondansetron HCl (Ondansetron Inj 2 Mg/Ml Inj 2 Ml) 4 mg IVP X1 ONE; Protocol Stop: 12/07/24 06:44 Last Admin: 12/07/24 07:24 Dose: 4 mg Assessment & Plan Plan Smita Jalloh is 54 yr female with PMH of HNT, seizure disorder, and polysubstance drug use presenting to [facility] ED 12/07/24 with chief complaint of severe, diffuse, dull abdominal pain since last night. GI Dr. Caraballo consulted and patient was admitted for management of colitis and OLLA. #Colitis #Leukocytososis Ddx: inflammatory from IBD, antibiotic use, infectious causes. Leukocytosis most likely reactive in setting of underlying inflammation. Chief complaint of severe, diffuse, dull abdominal pain since last night. Pain is 6/10 and associated with bloody diarrhea. She has experienced this pain 1 month ago but never worked up for it. Denies any colonoscopies in the past. CT A/P CT abdomen pelvis revealed colon wall thickening and inflammatory changes on noncontrast study. WBC 17.8, Hb stable 16, Cr 1.4. -GI Dr. Caraballo consulted, appreciate recs -Patient received total of fluids. Continue LR maintenance 75 cc/h ?IV ceftriaxone 2 gm daily (12/08-)-- concern for resistance to ciprofloxacin due to recurrence of similar symptoms. ? Metronidazole 500 mg TID (12/07- -IV NS 125cc/hr maintainence ? Follow-up blood culture ? Urine culture pending ?clear liquid diet -Zofran #LOLA Likely prerenal in setting of decreased oral intake, dehydration as patient is homeless. Creatinine 1.4 (baseline appears to be around 1.0), BUN 32BUN/CR 23 indicating prerenal etiology as well. -maintenance fluids 125 cch/hr NS -avoid nephrotoxic agents -daily CMP #Previous [place] She had an [place] one year ago and was transferred to [facility] where she had anigogram done. Per patient, there was some blockage but she does not recall getting any stents placed. [facility] [employer] is also located in [place]. Denies any chest pain, shortness of breath, lower extremity swelling on this admission. ASCVD: high risk, needs high intensity statin ? Echo pending ?Start aspirin 81 mg daily ? Atorvastatin 40 mg daily #Hypertension Resumed home meds: -Amlodipine 5 mg daily -Coreg 3.125mg BID -lisinopril?HCTZ 20 12.5 daily #Seziure disorder Denies having any seizure-like activity in the past couple of years. Does not follow with any neurologist. States that she was started on carbamazepine 200 mg TID by PCP. ?Resume medication ? Seizure precautions as needed #Homelessness #Polysubstance use disorder Currently staying with a friend but otherwise is homeless. Endorses smoking marijuana, denies alcohol use, previous history of smoking but quit 1 year ago after her heart attack. Denied illicit drug use but U tox positive for methamphetamines and THC. -pediatric social worker consult -nutrition counselor patient Health maintenance: Dispo: medsurg tx colitis, LOLA FEN: clear liquid DVT prophylaxis: Subcu heparin CODE STATUS: Full code The patient's management plan was discussed with my attending physician Dr. Nobles. [address], PGY-1
[2024-12-07] MEDS: HEPARIN SOD INJ 5000 UNIT/ML VIAL SC ×2 (11:34→21:29)
[2024-12-07] MEDS: SODIUM CHLORIDE 0.9% 1000 ML 1,000 ML 80 ML IV (11:40)
[2024-12-07 11:45] LABS: Cardiac Risk Estimate 2.6 RATIO (3.7-5.6); Cholesterol 217 mg/dL (132-200); HDL Cholesterol 82 mg/dL (40-60); LDL Cholesterol,Calculated 120 mg/dL (0-130); Triglycerides 77 mg/dL (30-150)
[2024-12-07] MEDS: SODIUM CHLORIDE 0.9% 1000 ML 1,000 ML 125 ML IV (14:54)
--- NOTE | 2024-12-07 15:03 | PC.NURSE ---
REPORT GIVEN TO NEAL JUÁREZEQUIPMENT TECHNICIAN NURSE ON M/S FLOOR WITH TELE BOX 5. PT STABLE FOR TRANSPORT.
--- NOTE | 2024-12-07 17:10 | PD.IMCONS ---
HPI Data of Consult Requesting Physician: Massiel Nobles MD Primary Care Provider: Glo Menard PA-C Consult Narrative Reason for consult: Bloody diarrhea pain abdomen abnormal CTAP History of present illness: 54 years old female came to the emergency with diffuse abdominal pain nausea vomiting and bloody diarrhea CT scan of the abdomen pelvis showed antral gastritis and diffuse colitis which is nonspecific She was started on metronidazole and ceftriaxone and admitted No known history of any inflammatory bowel disease Patient does have a history of essential hypertension seizure disorder and polysubstance abuse cc:: cc: Massiel Nobles MD Review of Systems Review of Systems Systems Reviewed: All systems reviewed, normal except as documented Past Medical History Surgical History OTHER SURGICAL HX: As in the history of present illness Meds Home Medications and Allergies Home Medications ?Medication ?Instructions ?Recorded ?Confirmed ?Type amlodipine 5 mg tablet 5 mg PO QDAY 08/08/20 12/07/24 History carbamazepine 200 mg tablet 200 mg PO TID 08/08/20 12/07/24 History (Tegretol) lisinopril 20 1 tab PO QDAY 08/08/20 12/07/24 History mg-hydrochlorothiazide 12.5 mg tablet carvedilol 3.125 mg tablet 3.125 mg PO Q12H 12/07/24 12/07/24 History magnesium oxide 400 mg (241.3 mg mg 12/07/24 History magnesium) tablet Allergies Allergy/AdvReac Type Severity Reaction Status Date / Time codeine Allergy Severe Vomiting Verified 12/07/24 03:30 Penicillins Allergy Severe Rash Verified 12/07/24 03:30 Exam Vital Signs Temp Pulse Resp BP Pulse Ox O2 Del Method 97.4 F 92 17 171/99 H 100 Room Air 12/07/24 15:37 12/07/24 17:01 12/07/24 15:37 12/07/24 17:01 12/07/24 15:37 12/07/24 15:37 Constitutional Comments: Chronically ill-appearing Routine Respiratory Exam Comments: Normal to auscultation Routine Abdominal Exam Comments: Generalized tenderness Results Labs 12/07/24 04:35 12/07/24 04:35 Labs: Short CBC 12/07/24 Range/Units 04:35 WBC 17.8 H (3.6-11.0) Thou/mm3 Hgb 16.0 (12.0-16.0) g/dL Hct 47.6 H (36.0-46.0) % Plt Count 307 (140-440) Thou/mm3 BMP 12/07/24 04:35 Sodium 138 Potassium 4.4 Chloride 100 Carbon Dioxide 28.6 BUN 32 H Creatinine 1.4 H Glucose 157 H Calcium 10.4 Liver Function 12/07/24 Range/Units 04:35 Total Bilirubin 0.3 (0.3-1.2) mg/dL AST 45 H (0-34) U/L ALT 44 (10-49) U/L Alkaline Phosphatase 125 H (46-116) U/L Albumin 4.8 (3.5-5.0) gm/dL Urine 12/07/24 Range/Units 04:32 Urine Color Yellow (Lt Yel-Yel) Urine Clarity Clear (Clear/Hazy) Urine pH 5.5 (5.0-7.0) Ur Specific [place] 1.015 (1.001-1.035) Urine Protein Negative (Neg - Trace) Urine Glucose (UA) Negative (Negative) Assessment and Plan Additional Assessment & Plan Additional Plan: # Bloody diarrhea with abnormal CT scan of the abdomen pelvis showing nonspecific colitis Differential diagnosis include infectious colitis versus inflammatory bowel disease Plan CRP ANCA antibody Stool culture and sensitivity Stool for Giardia Fecal calprotectin Stool for C. difficile by PCR Continue metronidazole and ceftriaxone If stool culture is negative we will consider doing fiberoptic colonoscopy with possible biopsy possible therapeutic intervention under intravenous moderate sedation Other medical problems include Seizure disorder Hypertension Polysubstance abuse Thank you very much for the opportunity to participate in the care of this patient
[2024-12-07 17:59] LABS: Sed Rate (ESR) 12 mm/hr (0-30)
[2024-12-07 18:30] LABS: C-Reactive Protein < 0.5 mg/dL (0.0-0.9)
[2024-12-07] MEDS: ATORVASTATIN CALCIUM 20 MG TABLET 40 MG PO (21:27)
[2024-12-07] MEDS: MORPHINE SULF INJ 10 MG/ML VIAL IVP (23:31)
[2024-12-08] VITALS (16 sets, daily range): BP systolic 109–156; BP diastolic 63–96; PULSE 57–88; RESP 16–98; TEMP 36.2–37.2; O2SAT 94–97
[2024-12-08] MEDS: HYDROcodone/APAP 5/325 TABLET 1 TAB PO (03:18)
[2024-12-08 03:55] LABS: OBS Card Lot # 0124; OBS Developer Lot # 0424; OBS Performed By malia; OBS QC OK? Yes; Occult Blood, Stool Positive (Negative)
[2024-12-08 04:50] LABS: Stool for WBCs 4+ (Negative)
[2024-12-08] MEDS: metroNIDAZOLE/NS 500 MG IVPB 500 MG/100 ML BAG 200 MG IV ×3 (05:43→20:58)
[2024-12-08 06:18] LABS: Basophils # (Auto) 0.0 Thou/mm3 (0.0-0.2); Basophils % (Auto) 0 % (0-2.5); Eosinophils # (Auto) 0.0 Thou/mm3 (0.0-0.5); Eosinophils % (Auto) 0 % (0-10); Hematocrit 35.2 % (36.0-46.0); Hemoglobin 12.1 g/dL (12.0-16.0); Immature Granulocytes Auto 0.02 Thou/mm3 (0.00-0.00); Lymphocytes # (Auto) 1.3 Thou/mm3 (1.0-4.8); Lymphocytes % (Auto) 14 % (10-50); Mean Corpuscular HGB Conc 34.4 g/dl (31.0-37.0); Mean Corpuscular Hemoglobin 31.0 pg (25.0-35.0); Mean Corpuscular Volume 90 fL (80-100); Monocytes # (Auto) 0.9 Thou/mm3 (0.0-0.8); Monocytes % (Auto) 10 % (0-12); Neutrophils # (Auto) 6.7 Thou/mm3 (1.8-7.7); Neutrophils % (Auto) 75 % (37-80); Nucleated Red Blood Cell # 0.00 Thou/mm3 (0.00-0.00); Nucleated Red Blood Cell % 0 /100 WBC (0); Platelet Count 196 Thou/mm3 (140-440); RDW Standard Deviation 41.8 fL (36.4-46.3); Red Blood Count 3.90 Miln/mm3 (4.00-5.20); White Blood Count 8.9 Thou/mm3 (3.6-11.0)
[2024-12-08 06:53] LABS: Alanine Aminotransferase 30 U/L (10-49); Albumin, Serum 3.6 gm/dL (3.5-5.0); Albumin/Globulin Ratio 1.6 (1.2-2.2); Alkaline Phosphatase 93 U/L (46-116); Anion Gap 6 (7-16); Aspartate Amino Transferase 23 U/L (0-34); BUN/Creatinine Ratio 22 Ratio (12-20); Bilirubin,Total 0.4 mg/dL (0.3-1.2); Blood Urea Nitrogen 20 mg/dL (9-23); Calcium 8.5 mg/dL (8.3-10.6); Calcium (Corrected) 8.8 mg/dL (8.5-10.1); Carbon Dioxide 28.0 mMol/L (20.0-31.0); Chloride 104 mMol/L (98-107); Creatinine (Component) 0.9 mg/dL (0.6-1.3); Estimated Creatinine Clearance 57.2 mL/min (>60); Globulin 2.3 gm/dL (2.3-3.5); Glucose 108 mg/dL (74-106); Magnesium 1.7 mg/dL (1.6-2.6); Osmolality,Calculated 279 (275-295); Phosphorous 2.9 mg/dL (2.4-5.1); Potassium 4.2 mMol/L (3.4-5.1); Sodium 138 mMol/L (136-145); Total Protein 5.9 gm/dL (5.7-8.2); eGFR > 60 See Note
[2024-12-08] MEDS: ACETAMINOPHEN 325 MG TABLET 650 MG PO ×2 (08:18→15:12)
[2024-12-08] MEDS: Magnesium Sulfate 2 GM Ivpb 2 GM/50 ML BAG IV (08:19)
[2024-12-08] MEDS: HEPARIN SOD INJ 5000 UNIT/ML VIAL SC ×2 (08:20→20:58)
[2024-12-08] MEDS: cefTRIAXone 2 GM in SODIUM CHLORIDE 0.9% (Popper) 50 ML IV (08:20)
[2024-12-08 10:00] LABS: Clostridium Difficile PCR Negative (Negative)
--- NOTE | 2024-12-08 12:09 | ESPR_ITS ---
Documentation for date of: 12/08/24 Subjective Subjective Interval history: Patient continues to have bloody stools Will start the patient with GoLytely prep Colonoscopy tentatively scheduled for tomorrow Exam Vital Signs Temp Pulse Resp BP Pulse Ox O2 Del Method 97.2 F 57 L 16 109/70 96 Room Air 12/08/24 11:56 12/08/24 11:56 12/08/24 11:56 12/08/24 11:56 12/08/24 11:56 12/08/24 11:56 Objective Labs 12/08/24 04:55 12/08/24 04:55 Labs: Laboratory Results - last 24 hr 12/07/24 12/08/24 12/08/24 04:35 03:00 03:10 WBC RBC Hgb Hct MCV MCH MCHC RDW Std Deviation Plt Count Neut % (Auto) Lymph % (Auto) [place] % (Auto) Eos % (Auto) Baso % (Auto) Neut # (Auto) Lymph # (Auto) [place] # (Auto) Eos # (Auto) Baso # (Auto) Immature Gran # (Auto) Absolute Nucleated RBC Immature Gran % Nucleated RBC % ESR 12 Sodium Potassium Chloride Carbon Dioxide Anion Gap BUN Creatinine Estim Creat Clear Calc eGFR BUN/Creatinine Ratio Glucose Calculated Osmolality Calcium Corrected Calcium Phosphorus Magnesium Total Bilirubin AST ALT Alkaline Phosphatase C-Reactive Prot, Quant < 0.5 Total Protein Albumin Globulin Albumin/Globulin Ratio Stool Occult Blood Positive A Stool for White Cells 4+ A Stl C. diff Tox B Gene Negative 12/08/24 04:55 WBC 8.9 D RBC 3.90 L Hgb 12.1 D Hct 35.2 L D MCV 90 MCH 31.0 MCHC 34.4 RDW Std Deviation 41.8 Plt Count 196 D Neut % (Auto) 75 Lymph % (Auto) 14 [place] % (Auto) 10 Eos % (Auto) 0 Baso % (Auto) 0 Neut # (Auto) 6.7 Lymph # (Auto) 1.3 [place] # (Auto) 0.9 H Eos # (Auto) 0.0 Baso # (Auto) 0.0 Immature Gran # (Auto) 0.02 H Absolute Nucleated RBC 0.00 Immature Gran % 0 Nucleated RBC % 0 ESR Sodium 138 Potassium 4.2 Chloride 104 Carbon Dioxide 28.0 Anion Gap 6 L BUN 20 Creatinine 0.9 D Estim Creat Clear Calc 57.2 L eGFR > 60 BUN/Creatinine Ratio 22 H Glucose 108 H Calculated Osmolality 279 Calcium 8.5 D Corrected Calcium 8.8 D Phosphorus 2.9 Magnesium 1.7 Total Bilirubin 0.4 AST 23 ALT 30 Alkaline Phosphatase 93 D C-Reactive Prot, Quant Total Protein 5.9 Albumin 3.6 D Globulin 2.3 Albumin/Globulin Ratio 1.6 Stool Occult Blood Stool for White Cells Stl C. diff Tox B Gene Impressions Impression: Bloody diarrhea abnormal CT scan of the abdomen pelvis GoLytely prep Colonoscopy Assessment & Plan A&P Narrative # Bloody diarrhea with abnormal CT scan of the abdomen pelvis showing nonspecific colitis Differential diagnosis include infectious colitis versus inflammatory bowel disease Plan CRP ANCA antibody Stool culture and sensitivity Stool for Giardia Fecal calprotectin Stool for C. difficile by PCR Continue metronidazole and ceftriaxone If stool culture is negative we will consider doing fiberoptic colonoscopy with possible biopsy possible therapeutic intervention under intravenous moderate sedation Other medical problems include Seizure disorder Hypertension Polysubstance abuse Thank you very much for the opportunity to participate in the care of this patient Time Spent With Patient Time: Total time spent is greater than 50% in coordination of care (as documented) at patient's floor/unit and/or counseling patient:
--- NOTE | 2024-12-08 15:26 | PC.SS ---
SS follow up note; Dr. Caraballo on board. Patient is pending a Stool Study.
--- NOTE | 2024-12-08 15:51 | ESPR_ITS ---
Documentation for date of: 12/08/24 Subjective Subjective Interval history: Patient examined at bedside, no events overnight. Continues to complain of abdominal pain improved slightly from yesterday on admission. And having episodes of diarrhea that are bloody. Stool occult was positive. Currently tolerating liquid diet. Advance as tolerated. Leukocytosis resolved with WBC 8.9, hemoglobin downtrended 12, platelets downtrended 196 appears to be most dilutional. LOLA resolved with adequate fluids creatinine 0.9 today. Vitals are stable. GI Dr. Caraballo was consulted who will follow-up with stool studies. If studies are negative patient will possibly need a colonoscopy with biopsies. Continue ceftriaxone 2 g daily and metronidazole in setting of her colitis. Exam Vital Signs Temp Pulse Resp BP Pulse Ox O2 Del Method 97.2 F 64 16 128/63 96 Room Air 12/08/24 15:42 12/08/24 15:42 12/08/24 15:42 12/08/24 15:42 12/08/24 15:42 12/08/24 15:42 Narrative Exam General: Middle age female, distress from pain, cooperative HEENT: NCAT, No JVD noted. Mucosa dry. Pupils are equal and reactive to light bilaterally Cardiovascular: Normal S1 and S2. Regular rate and rhythm. Respiratory: Lungs are clear to auscultation bilaterally. No wheezing or crackles heard. Abdomen: Soft, diffuse tenderness, not distended, normal bowel sounds. Skin: Warm to touch, dry, no rashes noted Musculoskeletal: No gross injuries. Able to move all 4 extremities. No pitting edema Neuro: Alert and oriented x3. No focal neuro deficits. Psych: disheveled, sad mood Objective Labs 12/10/24 05:03 12/10/24 05:03 Labs: Laboratory Results - last 24 hr 12/07/24 12/08/24 12/08/24 04:35 03:00 03:10 WBC RBC Hgb Hct MCV MCH MCHC RDW Std Deviation Plt Count Neut % (Auto) Lymph % (Auto) [place] % (Auto) Eos % (Auto) Baso % (Auto) Neut # (Auto) Lymph # (Auto) [place] # (Auto) Eos # (Auto) Baso # (Auto) Immature Gran # (Auto) Absolute Nucleated RBC Immature Gran % Nucleated RBC % ESR 12 Sodium Potassium Chloride Carbon Dioxide Anion Gap BUN Creatinine Estim Creat Clear Calc eGFR BUN/Creatinine Ratio Glucose Calculated Osmolality Calcium Corrected Calcium Phosphorus Magnesium Total Bilirubin AST ALT Alkaline Phosphatase C-Reactive Prot, Quant < 0.5 Total Protein Albumin Globulin Albumin/Globulin Ratio Stool Occult Blood Positive A Stool for White Cells 4+ A Stl C. diff Tox B Gene Negative 12/08/24 04:55 WBC 8.9 D RBC 3.90 L Hgb 12.1 D Hct 35.2 L D MCV 90 MCH 31.0 MCHC 34.4 RDW Std Deviation 41.8 Plt Count 196 D Neut % (Auto) 75 Lymph % (Auto) 14 [place] % (Auto) 10 Eos % (Auto) 0 Baso % (Auto) 0 Neut # (Auto) 6.7 Lymph # (Auto) 1.3 [place] # (Auto) 0.9 H Eos # (Auto) 0.0 Baso # (Auto) 0.0 Immature Gran # (Auto) 0.02 H Absolute Nucleated RBC 0.00 Immature Gran % 0 Nucleated RBC % 0 ESR Sodium 138 Potassium 4.2 Chloride 104 Carbon Dioxide 28.0 Anion Gap 6 L BUN 20 Creatinine 0.9 D Estim Creat Clear Calc 57.2 L eGFR > 60 BUN/Creatinine Ratio 22 H Glucose 108 H Calculated Osmolality 279 Calcium 8.5 D Corrected Calcium 8.8 D Phosphorus 2.9 Magnesium 1.7 Total Bilirubin 0.4 AST 23 ALT 30 Alkaline Phosphatase 93 D C-Reactive Prot, Quant Total Protein 5.9 Albumin 3.6 D Globulin 2.3 Albumin/Globulin Ratio 1.6 Stool Occult Blood Stool for White Cells Stl C. diff Tox B Gene Quality Measures Quality Measures none Assessment & Plan Assessment Current Active Medications: Generic Name Dose Route Start Last Admin Trade Name Tramaine PRN Reason Stop Dose Admin Acetaminophen 650 mg 12/07/24 10:28 12/08/24 15:12 Acetaminophen 325 Mg Tablet PO 01/06/25 10:27 650 mg Q6H PRN Administration Fever >100.3 or pain 1-3 Amlodipine Besylate 5 mg 12/07/24 10:45 12/08/24 08:19 Amlodipine Besylate 5 Mg Tablet PO 01/06/25 10:44 5 mg QDAY SANDRA Administration Atorvastatin Calcium 40 mg 12/07/24 21:00 12/07/24 21:27 Atorvastatin Calcium 20 Mg Tablet PO 01/06/25 20:59 40 mg HS SANDRA Administration Carbamazepine 200 mg 12/07/24 14:00 12/08/24 15:12 Carbamazepine 200 Mg Tablet PO 01/06/25 13:59 200 mg TID SANDRA Administration Carvedilol 3.125 mg 12/07/24 10:45 12/08/24 08:19 Carvedilol 3.125 Mg Tablet PO 01/06/25 10:44 3.125 mg BIDWM SANDRA Administration Heparin Sodium (Porcine) 5,000 unit 12/07/24 10:45 12/08/24 08:20 Heparin Sod Inj 5000 Unit/Ml Vial SC 12/21/24 10:44 5,000 unit BID SANDRA Administration Hydrochlorothiazide 12.5 mg 12/07/24 10:45 12/08/24 08:19 Hydrochlorothiazide 12.5 Mg Capsule PO 01/06/25 10:44 12.5 mg QDAY SANDRA Administration Metronidazole 500 mg in 100 mls @ 200 mls/hr 12/07/24 14:00 12/08/24 15:13 Flagyl 500 Mg Iv IV 12/14/24 13:59 200 mls/hr Q8HR SANDRA Administration Ceftriaxone Sodium 2 gm/ 50 mls @ 100 mls/hr 12/08/24 09:00 12/08/24 08:20 Sodium Chloride IV 12/15/24 08:59 100 mls/hr QDAY SANDRA Administration Lactulose 10 gm 12/07/24 10:28 Lactulose Syrup 20 Gm/30 Ml Udc PO 01/07/25 08:59 QDAY PRN constipation Protocol Lisinopril 20 mg 12/07/24 10:45 12/08/24 08:19 Lisinopril 20 Mg Tablet PO 01/06/25 10:44 20 mg QDAY SANDRA Administration Ondansetron HCl 4 mg 12/07/24 10:28 Ondansetron Inj 2 Mg/Ml Inj 2 Ml IVP 01/06/25 10:27 Q6H PRN NAUSEA OR VOMITING Protocol Pantoprazole Sodium 40 mg 12/07/24 10:45 12/08/24 08:20 Pantoprazole Inj 40 Mg Vial IVP 01/06/25 10:44 40 mg QDAY SANDRA Administration Plan Smita Overturf is 54 yr female with PMH of HNT, seizure disorder, and polysubstance drug use presenting to [facility] 12/07/24 with chief complaint of severe, diffuse, dull abdominal pain since last night. GI Dr. Caraballo consulted and patient was admitted for management of colitis and LOLA. #Colitis #Leukocytososis-resolved Ddx: inflammatory from IBD, antibiotic use, infectious causes. Leukocytosis most likely reactive in setting of underlying inflammation. Chief complaint of severe, diffuse, dull abdominal pain since last night. Pain is 6/10 and associated with bloody diarrhea. She has experienced this pain 1 month ago but never worked up for it. Denies any colonoscopies in the past. CT A/P CT abdomen pelvis revealed colon wall thickening and inflammatory changes on noncontrast study. WBC 17.8, Hb stable 16, Cr 1.4. -GI Dr. Caraballo consulted, appreciate recs -encourage oral intake ?IV ceftriaxone 2 gm daily (12/08-)-- concern for resistance to ciprofloxacin due to recurrence of similar symptoms. ? Metronidazole 500 mg TID (12/07- ? Follow-up blood culture--preliminary resulted negative ?clear liquid diet advance as tolerated -Zofran #Previous [place] She had an [place] one year ago and was transferred to [facility] where she had anigogram done. Per patient, there was some blockage but she does not recall getting any stents placed. [employer] is also located in [place]. Denies any chest pain, shortness of breath, lower extremity swelling on this admission. ASCVD: high risk, needs high intensity statin ? Echo pending ?started aspirin 81 mg daily ? Atorvastatin 40 mg daily #Hypertension Resumed home meds: -Amlodipine 5 mg daily -Coreg 3.125mg BID -lisinopril?HCTZ 20 12.5 daily #Seziure disorder Denies having any seizure-like activity in the past couple of years. Does not follow with any neurologist. States that she was started on carbamazepine 200 mg TID by PCP. ?Resume medication ? Seizure precautions as needed #Homelessness #Polysubstance use disorder Currently staying with a friend but otherwise is homeless. Endorses smoking marijuana, denies alcohol use, previous history of smoking but quit 1 year ago after her heart attack. Denied illicit drug use but U tox positive for methamphetamines and THC. -psychotherapist social worker consult -behavioral health counselor patient #LOLA-resolved Health maintenance: Dispo: medsurg tx colitis, LOLA FEN: clear liquid DVT prophylaxis: Subcu heparin CODE STATUS: Full code The patient's management plan was discussed with my attending physician Dr. Callejas. Lee Ann St, PGY-1 Attending Provider Attestation/Addendum I have examined the patient, reviewed labs and imaging findings, discussed the case with the resident(s), and reviewed entered orders. I agree with the plan of care as outlined in this note. Dr. Britta MD
--- NOTE | 2024-12-08 16:07 | PC.SS ---
Addendum entered by Eve Sarah 12/08/24 16:12: SS follow up note; SS will meet with patient tomorrow in regards to Resources. Original Note: Patient Smita Jalloh is a 54 Year old female admitted for ABD Pain. Patient reports she lives at home with roommates at [address]. Patient reports her life partner, Herbie Larson is her surrogate decision maker, [phone] or [phone]. Patient reports that prior to admission she was able to ambulate, patient does not need assistance completing ADL's. Choice of pharmacy is [facility]. PCP is [facility]. At time of discharge patient will discharge back home. Next if kin: Life partner, Herbie Larson Discharge plan: Home
[2024-12-08] MEDS: NA SU/NAHCO3/KC/PEG (Golytely) 4,000 ML BTL 4000 ML PO (18:27)
[2024-12-08] MEDS: ATORVASTATIN CALCIUM 20 MG TABLET 40 MG PO (20:57)
[2024-12-09] VITALS (10 sets, daily range): BP systolic 111–149; BP diastolic 70–94; PULSE 62–100; RESP 17–97; TEMP 36.2–36.9; O2SAT 94–98
[2024-12-09 05:29] LABS: Basophils # (Auto) 0.0 Thou/mm3 (0.0-0.2); Basophils % (Auto) 0 % (0-2.5); Eosinophils # (Auto) 0.0 Thou/mm3 (0.0-0.5); Eosinophils % (Auto) 1 % (0-10); Hematocrit 34.7 % (36.0-46.0); Hemoglobin 11.8 g/dL (12.0-16.0); Immature Granulocytes Auto 0.03 Thou/mm3 (0.00-0.00); Lymphocytes # (Auto) 1.5 Thou/mm3 (1.0-4.8); Lymphocytes % (Auto) 18 % (10-50); Mean Corpuscular HGB Conc 34.0 g/dl (31.0-37.0); Mean Corpuscular Hemoglobin 30.8 pg (25.0-35.0); Mean Corpuscular Volume 91 fL (80-100); Monocytes # (Auto) 0.7 Thou/mm3 (0.0-0.8); Monocytes % (Auto) 8 % (0-12); Neutrophils # (Auto) 6.2 Thou/mm3 (1.8-7.7); Neutrophils % (Auto) 73 % (37-80); Nucleated Red Blood Cell # 0.00 Thou/mm3 (0.00-0.00); Nucleated Red Blood Cell % 0 /100 WBC (0); Platelet Count 175 Thou/mm3 (140-440); RDW Standard Deviation 41.9 fL (36.4-46.3); Red Blood Count 3.83 Miln/mm3 (4.00-5.20); White Blood Count 8.5 Thou/mm3 (3.6-11.0)
[2024-12-09] MEDS: metroNIDAZOLE/NS 500 MG IVPB 500 MG/100 ML BAG 200 MG IV ×3 (05:32→21:25)
[2024-12-09 05:44] LABS: Alanine Aminotransferase 33 U/L (10-49); Albumin, Serum 3.8 gm/dL (3.5-5.0); Albumin/Globulin Ratio 1.5 (1.2-2.2); Alkaline Phosphatase 97 U/L (46-116); Anion Gap 6 (7-16); Aspartate Amino Transferase 27 U/L (0-34); BUN/Creatinine Ratio 14 Ratio (12-20); Bilirubin,Total 0.4 mg/dL (0.3-1.2); Blood Urea Nitrogen 11 mg/dL (9-23); Calcium 9.2 mg/dL (8.3-10.6); Calcium (Corrected) 9.4 mg/dL (8.5-10.1); Carbon Dioxide 30.9 mMol/L (20.0-31.0); Chloride 104 mMol/L (98-107); Creatinine (Component) 0.8 mg/dL (0.6-1.3); Estimated Creatinine Clearance 64.3 mL/min (>60); Globulin 2.5 gm/dL (2.3-3.5); Glucose 100 mg/dL (74-106); Magnesium 1.6 mg/dL (1.6-2.6); Osmolality,Calculated 280 (275-295); Phosphorous 3.3 mg/dL (2.4-5.1); Potassium 4.5 mMol/L (3.4-5.1); Sodium 141 mMol/L (136-145); Total Protein 6.3 gm/dL (5.7-8.2); eGFR > 60 See Note
[2024-12-09] MEDS: cefTRIAXone 2 GM in SODIUM CHLORIDE 0.9% (Popper) 50 ML IV (08:55)
[2024-12-09] MEDS: Magnesium Sulfate 2 GM Ivpb 2 GM/50 ML BAG IV (09:43)
[2024-12-09] MEDS: KETOROLAC INJ 30 MG/ML VIAL IVP ×2 (09:52→21:36)
--- NOTE | 2024-12-09 14:50 | ESPR_ITS ---
<Statement entered by Raciel Genao MD - 12/11/24 13:59> I have discussed and was present for the essential components of the history, physical examination, diagnosis, and treatment plan with the resident. I agree with the patient's care as documented by the resident and amended herein by me. Raciel Genao MD FACP. Documentation for date of: 12/09/24 Subjective Subjective Interval history: pt reports being in severe lower abdominal pain that started in the AM. pt is tearful 2/2 pain Exam Vital Signs Temp Pulse Resp BP Pulse Ox O2 Del Method 97.5 F 75 17 132/75 H 98 Room Air 12/09/24 12:00 12/09/24 12:00 12/09/24 12:00 12/09/24 12:00 12/09/24 12:00 12/09/24 12:00 Vitals over the past 24hours were reviewed: Temp: Afebrile HR: 80-100 BP: 111-156/70s/90s RR: wnl O2 sat: ok on RA Narrative Exam GENERAL: pt in tears (in acute distress), AAO x3, sitting upright, very uncomfortable in bed HEENT: Head AT/ NC. CARDIOVASCULAR: well perfused on visual inspection, regular rate, No pitting edema of bilateral LEs. RESPIRATORY: normal WOB GASTROINTESTINAL: Abdomen soft, diffuse tenderness to palpation in lower abdomen, Bowel sounds present MUSCULOSKELETAL:? No cyanosis or edema, no visible joint swelling. PSYCHIATRIC: Awake and alert, in pain, appropriate affect. SKIN: No obvious rashes, no jaundice. Objective Labs 12/09/24 05:13 12/09/24 05:13 Labs: Laboratory Results - last 24 hr 12/09/24 05:13 WBC 8.5 RBC 3.83 L Hgb 11.8 L Hct 34.7 L MCV 91 MCH 30.8 MCHC 34.0 RDW Std Deviation 41.9 Plt Count 175 Neut % (Auto) 73 Lymph % (Auto) 18 [place] % (Auto) 8 Eos % (Auto) 1 Baso % (Auto) 0 Neut # (Auto) 6.2 Lymph # (Auto) 1.5 [place] # (Auto) 0.7 Eos # (Auto) 0.0 Baso # (Auto) 0.0 Immature Gran # (Auto) 0.03 H Absolute Nucleated RBC 0.00 Immature Gran % 0 Nucleated RBC % 0 Sodium 141 Potassium 4.5 Chloride 104 Carbon Dioxide 30.9 Anion Gap 6 L BUN 11 Creatinine 0.8 Estim Creat Clear Calc 64.3 eGFR > 60 BUN/Creatinine Ratio 14 Glucose 100 Calculated Osmolality 280 Calcium 9.2 Corrected Calcium 9.4 Phosphorus 3.3 Magnesium 1.6 Total Bilirubin 0.4 AST 27 ALT 33 Alkaline Phosphatase 97 Total Protein 6.3 Albumin 3.8 Globulin 2.5 Albumin/Globulin Ratio 1.5 Quality Measures Quality Measures none Assessment & Plan Assessment Current Active Medications: Generic Name Dose Route Start Last Admin Trade Name Freq PRN Reason Stop Dose Admin Acetaminophen 650 mg 12/07/24 10:28 12/08/24 15:12 Acetaminophen 325 Mg Tablet PO 01/06/25 10:27 650 mg Q6H PRN Administration Fever >100.3 or pain 1-3 Amlodipine Besylate 5 mg 12/07/24 10:45 12/09/24 08:53 Amlodipine Besylate 5 Mg Tablet PO 01/06/25 10:44 5 mg QDAY SANDRA Administration Atorvastatin Calcium 40 mg 12/07/24 21:00 12/08/24 20:57 Atorvastatin Calcium 20 Mg Tablet PO 01/06/25 20:59 40 mg HS SANDRA Administration Carbamazepine 200 mg 12/07/24 14:00 12/09/24 13:56 Carbamazepine 200 Mg Tablet PO 01/06/25 13:59 200 mg TID SANDRA Administration Carvedilol 3.125 mg 12/07/24 10:45 12/09/24 08:53 Carvedilol 3.125 Mg Tablet PO 01/06/25 10:44 3.125 mg BIDWM SANDRA Administration Heparin Sodium (Porcine) 5,000 unit 12/07/24 10:45 12/09/24 08:55 Heparin Sod Inj 5000 Unit/Ml Vial SC 12/21/24 10:44 Not Given BID SANDRA Hydrochlorothiazide 12.5 mg 12/07/24 10:45 12/09/24 08:53 Hydrochlorothiazide 12.5 Mg Capsule PO 01/06/25 10:44 12.5 mg QDAY SANDRA Administration Metronidazole 500 mg in 100 mls @ 200 mls/hr 12/07/24 14:00 12/09/24 13:56 Flagyl 500 Mg Iv IV 12/14/24 13:59 200 mls/hr Q8HR SANDRA Administration Ceftriaxone Sodium 2 gm/ 50 mls @ 100 mls/hr 12/08/24 09:00 12/09/24 09:25 Sodium Chloride IV 12/15/24 08:59 Infused QDAY SANDRA Infusion Lactulose 10 gm 12/07/24 10:28 Lactulose Syrup 20 Gm/30 Ml Udc PO 01/07/25 08:59 QDAY PRN constipation Protocol Lisinopril 20 mg 12/07/24 10:45 12/09/24 08:53 Lisinopril 20 Mg Tablet PO 01/06/25 10:44 20 mg QDAY SANDRA Administration Ondansetron HCl 4 mg 12/07/24 10:28 Ondansetron Inj 2 Mg/Ml Inj 2 Ml IVP 01/06/25 10:27 Q6H PRN NAUSEA OR VOMITING Protocol Pantoprazole Sodium 40 mg 12/07/24 10:45 12/09/24 08:55 Pantoprazole Inj 40 Mg Vial IVP 01/06/25 10:44 40 mg QDAY SANDRA Administration Plan Smita Jalloh is 54 yr woman with PMH of HTN, seizure disorder, and polysubstance drug use, who presented to the ED 12/07 with chief concern for 1 day of severe, diffuse, dull abdominal pain. GI Dr. Caraballo consulted and patient was admitted for management of colitis vs IBD and LOLA. #Colitis vs IBD #Leukocytososis-RESOLVED Ddx: inflammatory from IBD, antibiotic use, infectious causes. Leukocytosis most likely reactive in setting of underlying inflammation. Chief concern of severe, diffuse, dull abdominal pain for 1 day. Pain is 6/10 and associated with bloody diarrhea. She has experienced this pain 1 month ago but never worked up for it. Denies any colonoscopies in the past. CT A/P CT abdomen pelvis revealed colon wall thickening and inflammatory changes on noncontrast study. WBC 17.8, Hb stable 16, Cr 1.4. -GI Dr. Caraballo consulted, appreciate recs -encourage oral intake ?IV ceftriaxone 2 gm daily (12/08-)-- concern for resistance to ciprofloxacin due to recurrence of similar symptoms. ? Metronidazole 500 mg TID (12/07- ? Follow-up blood culture--preliminary resulted negative ?clear liquid diet advance as tolerated -Zofran #Previous [place] She had an [place] one year ago and was transferred to [facility] where she had anigogram done. Per patient, there was some blockage but she does not recall getting any stents placed. [employer] is also located in [place]. Denies any chest pain, shortness of breath, lower extremity swelling on this admission. ASCVD: high risk, needs high intensity statin ? Echo pending ?started aspirin 81 mg daily ? Atorvastatin 40 mg daily #Hypertension While inpatient, SBP have been elevated to 150s, home meds resumed. CTM BP. -Amlodipine 5 mg daily -Coreg 3.125mg BID -lisinopril?HCTZ 20 12.5 daily #Seziure disorder Denies having any seizure-like activity in the past couple of years. Does not follow with any neurologist. States that she was started on carbamazepine 200 mg TID by PCP. ? carbamezepine, 200 mg TID ? Seizure precautions as needed #Unhoused #Polysubstance use disorder Currently staying with a friend but otherwise is unhoused. Endorses smoking marijuana, denies alcohol use, previous history of smoking but quit 1 year ago after her heart attack. Denied illicit drug use but U tox positive for methamphetamines and THC. -social science teacher consult -career and guidance counselor patient #LOLA-resolved Health maintenance: Dispo: medsurg tx colitis, LOLA DIET: clear liquid, Advance as tolerated DVT prophylaxis: Subq heparin BID GI ppx: Pantoprozole 40mg IV Qd CODE STATUS: Full code The patient's management plan was discussed with my attending physician Dr. Genao. Elayne Sam, PGY-1 Patient seen and examined at bedside, no acute overnight events. I discussed and supervised with the sourcing intern physician who took care of this patient. I personally saw and examined the patient. I agree with most of the assessment and plan. Patient continues to endorse severe abdominal pain. Pending colonoscopy, stool cultures. Blood cultures negative. Continuing home meds for BP and seizures. Plan of care discussed with attending Dr. Genao. Luis Fernando Sánchez MD PGY-2
--- NOTE | 2024-12-09 18:20 | PC.NURSE ---
Attempted NG insertion. Advanced past patient's throat. Pt began crying and was unable to tolerate. Pt refused to go any further and asked for NG tube to be taken out.
--- NOTE | 2024-12-09 20:09 | ESPR_ITS ---
Documentation for date of: 12/09/24 Subjective Subjective Interval history: Patient evaluated she is not able to drink the GoLytely that much She is not clear NGT was offered and it was almost in and she pulled it out She probably she will drink additional GoLytely Procedure rescheduled for tomorrow Exam Vital Signs Temp Pulse Resp BP Pulse Ox O2 Del Method 98.4 F 90 18 142/83 H 96 Room Air 12/09/24 16:00 12/09/24 18:03 12/09/24 16:00 12/09/24 18:03 12/09/24 16:00 12/09/24 16:00 Objective Labs 12/09/24 05:13 12/09/24 05:13 Labs: Laboratory Results - last 24 hr 12/09/24 05:13 WBC 8.5 RBC 3.83 L Hgb 11.8 L Hct 34.7 L MCV 91 MCH 30.8 MCHC 34.0 RDW Std Deviation 41.9 Plt Count 175 Neut % (Auto) 73 Lymph % (Auto) 18 [place] % (Auto) 8 Eos % (Auto) 1 Baso % (Auto) 0 Neut # (Auto) 6.2 Lymph # (Auto) 1.5 [place] # (Auto) 0.7 Eos # (Auto) 0.0 Baso # (Auto) 0.0 Immature Gran # (Auto) 0.03 H Absolute Nucleated RBC 0.00 Immature Gran % 0 Nucleated RBC % 0 Sodium 141 Potassium 4.5 Chloride 104 Carbon Dioxide 30.9 Anion Gap 6 L BUN 11 Creatinine 0.8 Estim Creat Clear Calc 64.3 eGFR > 60 BUN/Creatinine Ratio 14 Glucose 100 Calculated Osmolality 280 Calcium 9.2 Corrected Calcium 9.4 Phosphorus 3.3 Magnesium 1.6 Total Bilirubin 0.4 AST 27 ALT 33 Alkaline Phosphatase 97 Total Protein 6.3 Albumin 3.8 Globulin 2.5 Albumin/Globulin Ratio 1.5 Impressions Impression: Nonspecific colitis Bloody diarrhea GoLytely prep to continue Assessment & Plan A&P Narrative # Bloody diarrhea with abnormal CT scan of the abdomen pelvis showing nonspecific colitis Differential diagnosis include infectious colitis versus inflammatory bowel disease Plan CRP ANCA antibody Stool culture and sensitivity Stool for Giardia Fecal calprotectin Stool for C. difficile by PCR Continue metronidazole and ceftriaxone If stool culture is negative we will consider doing fiberoptic colonoscopy with possible biopsy possible therapeutic intervention under intravenous moderate sedation Other medical problems include Seizure disorder Hypertension Polysubstance abuse Thank you very much for the opportunity to participate in the care of this patient Time Spent With Patient Time: Total time spent is greater than 50% in coordination of care (as documented) at patient's floor/unit and/or counseling patient:
[2024-12-09] MEDS: ATORVASTATIN CALCIUM 20 MG TABLET 40 MG PO (21:24)
[2024-12-09] MEDS: HEPARIN SOD INJ 5000 UNIT/ML VIAL SC (21:43)
[2024-12-10] VITALS (9 sets, daily range): BP systolic 121–148; BP diastolic 75–87; PULSE 65–87; RESP 16–96; TEMP 36.1–36.3; O2SAT 95–98; BMI 21.9
[2024-12-10] MEDS: metroNIDAZOLE/NS 500 MG IVPB 500 MG/100 ML BAG 200 MG IV ×2 (05:38→14:09)
[2024-12-10 06:05] LABS: Basophils # (Auto) 0.0 Thou/mm3 (0.0-0.2); Basophils % (Auto) 0 % (0-2.5); Eosinophils # (Auto) 0.1 Thou/mm3 (0.0-0.5); Eosinophils % (Auto) 1 % (0-10); Hematocrit 34.3 % (36.0-46.0); Hemoglobin 11.6 g/dL (12.0-16.0); Immature Granulocytes Auto 0.02 Thou/mm3 (0.00-0.00); Lymphocytes # (Auto) 1.7 Thou/mm3 (1.0-4.8); Lymphocytes % (Auto) 20 % (10-50); Mean Corpuscular HGB Conc 33.8 g/dl (31.0-37.0); Mean Corpuscular Hemoglobin 31.3 pg (25.0-35.0); Mean Corpuscular Volume 93 fL (80-100); Monocytes # (Auto) 0.9 Thou/mm3 (0.0-0.8); Monocytes % (Auto) 11 % (0-12); Neutrophils # (Auto) 5.7 Thou/mm3 (1.8-7.7); Neutrophils % (Auto) 68 % (37-80); Nucleated Red Blood Cell # 0.00 Thou/mm3 (0.00-0.00); Nucleated Red Blood Cell % 0 /100 WBC (0); Platelet Count 164 Thou/mm3 (140-440); RDW Standard Deviation 43.0 fL (36.4-46.3); Red Blood Count 3.71 Miln/mm3 (4.00-5.20); White Blood Count 8.5 Thou/mm3 (3.6-11.0)
[2024-12-10 07:05] LABS: Alanine Aminotransferase 24 U/L (10-49); Albumin, Serum 3.6 gm/dL (3.5-5.0); Albumin/Globulin Ratio 1.6 (1.2-2.2); Alkaline Phosphatase 97 U/L (46-116); Anion Gap 6 (7-16); Aspartate Amino Transferase 21 U/L (0-34); BUN/Creatinine Ratio 11 Ratio (12-20); Bilirubin,Total 0.3 mg/dL (0.3-1.2); Blood Urea Nitrogen 8 mg/dL (9-23); Calcium 8.6 mg/dL (8.3-10.6); Calcium (Corrected) 8.9 mg/dL (8.5-10.1); Carbon Dioxide 28.8 mMol/L (20.0-31.0); Chloride 105 mMol/L (98-107); Creatinine (Component) 0.7 mg/dL (0.6-1.3); Estimated Creatinine Clearance 73.5 mL/min (>60); Globulin 2.3 gm/dL (2.3-3.5); Glucose 92 mg/dL (74-106); Magnesium 1.6 mg/dL (1.6-2.6); Osmolality,Calculated 277 (275-295); Phosphorous 3.4 mg/dL (2.4-5.1); Potassium 3.5 mMol/L (3.4-5.1); Sodium 140 mMol/L (136-145); Total Protein 5.9 gm/dL (5.7-8.2); eGFR > 60 See Note
[2024-12-10] MEDS: cefTRIAXone/D5w 2gm 2 GM/50 ML BAG IV (09:04)
--- NOTE | 2024-12-10 10:29 | PC.NURSE ---
Pt noncompliant with golytely. Provided education that it is very important to drink the solution so that can complete the procedure. Offered Ice multiple times, gave juice to sip and help with taste of golytely. Attempted NG tube yesterday, Pt was unable to tolerate. Going in to the room every 30 minutes to 1 hour to encourage patient to drink. Pt verbalizes understanding, however, not actually drinking the solution.
[2024-12-10] MEDS: Magnesium Sulfate 2 GM Ivpb 2 GM/50 ML BAG IV (10:46)
--- NOTE | 2024-12-10 12:04 | PC.SS ---
SS follow up note; Colonoscopy pending today. Patient will discharge home today.
--- NOTE | 2024-12-10 12:30 | ESPR_ITS ---
Documentation for date of: 12/10/24 Subjective Subjective Interval history: Patient not cooperative during GoLytely she pulled out the NGT She wants to leave AMA Which is her choice Exam Vital Signs Temp Pulse Resp BP Pulse Ox O2 Del Method 97.1 F 74 18 136/80 H 97 Room Air 12/10/24 08:00 12/10/24 12:00 12/10/24 08:43 12/10/24 08:58 12/10/24 08:00 12/10/24 08:00 Objective Labs 12/10/24 05:03 12/10/24 05:03 Labs: Laboratory Results - last 24 hr 12/10/24 05:03 WBC 8.5 RBC 3.71 L Hgb 11.6 L Hct 34.3 L MCV 93 MCH 31.3 MCHC 33.8 RDW Std Deviation 43.0 Plt Count 164 Neut % (Auto) 68 Lymph % (Auto) 20 [place] % (Auto) 11 Eos % (Auto) 1 Baso % (Auto) 0 Neut # (Auto) 5.7 Lymph # (Auto) 1.7 [place] # (Auto) 0.9 H Eos # (Auto) 0.1 Baso # (Auto) 0.0 Immature Gran # (Auto) 0.02 H Absolute Nucleated RBC 0.00 Immature Gran % 0 Nucleated RBC % 0 Sodium 140 Potassium 3.5 D Chloride 105 Carbon Dioxide 28.8 Anion Gap 6 L BUN 8 L Creatinine 0.7 Estim Creat Clear Calc 73.5 eGFR > 60 BUN/Creatinine Ratio 11 L Glucose 92 Calculated Osmolality 277 Calcium 8.6 Corrected Calcium 8.9 Phosphorus 3.4 Magnesium 1.6 Total Bilirubin 0.3 AST 21 ALT 24 Alkaline Phosphatase 97 Total Protein 5.9 Albumin 3.6 Globulin 2.3 Albumin/Globulin Ratio 1.6 Impressions Impression: Colitis Abnormal CT scan of the abdomen pelvis Not much can be done if the patient wants to leave AMA she fully understands that Assessment & Plan A&P Narrative # Bloody diarrhea with abnormal CT scan of the abdomen pelvis showing nonspecific colitis Differential diagnosis include infectious colitis versus inflammatory bowel disease Plan CRP ANCA antibody Stool culture and sensitivity Stool for Giardia Fecal calprotectin Stool for C. difficile by PCR Continue metronidazole and ceftriaxone If stool culture is negative we will consider doing fiberoptic colonoscopy with possible biopsy possible therapeutic intervention under intravenous moderate sedation Other medical problems include Seizure disorder Hypertension Polysubstance abuse Thank you very much for the opportunity to participate in the care of this patient Time Spent With Patient Time: Total time spent is greater than 50% in coordination of care (as documented) at patient's floor/unit and/or counseling patient:
--- NOTE | 2024-12-10 14:27 | PD.RESEVENT ---
Documentation for date of: 12/10/24 Event Note Event Note: Primary team called to bedside for pt wanting to leave AMA. Pt reports having difficulty tolerating the colonoscopy prep with golytely. pt had tried to complete the prep with NG tube on 12/09, however pt could not tolerate. Pt agreed to stay till 1600 today, pending alternatives to golytely prep from GI. Dr. Caraballo (GI) notified. Case discussed with my attending Dr. Birgit Sam MD PGY-1
--- NOTE | 2024-12-10 17:33 | PC.NURSE ---
Pt has been noncompliant with Golytely for the last 2 days. Have been educating patient and encouraging patient to drink the golytely. At around 14:35 patient became very upset and started getting dressed. Stated she was tired of this and she was going to leave. Pt stated she would not drink any more of that stuff and that it was disgusting. She said she has been here 5 days and she doesn't want to be here anymore. Educated patient that it is very important to continue care. Educated patient that if for some reason she were having an active bleed in the stomach it could be life threatening. Giselle came to talk to patient and encouraged patient to stay until they find an alternative. Patient agreed to stay as long as she didn't need to drink anymore golyetly. Around 1635, Patient decided she didn't want to stay any longer and left AMA
--- NOTE | 2024-12-10 17:36 | ESDS_ITS ---
<Statement entered by Raciel Genao MD - 12/11/24 19:44> I have discussed and was present for the essential components of the history, physical examination, diagnosis, and treatment plan with the resident. I agree with the patient's care as documented by the resident and amended herein by me. Raciel Genao MD FACP. <Statement entered by Luis Fernando Sánchez MD - 12/10/24 18:39> Patient seen and examined at bedside, no acute overnight events. I discussed and supervised with the application development intern physician who took care of this patient. I personally saw and examined the patient. I agree with most of the assessment and plan. Plan of care discussed with attending Dr. Genao. Luis Fernando Sánchez MD PGY-2 Planned Discharge Date 12/10/24 DS: Providers Provider Date of admission: 12/07/24 10:28 Primary care physician: Glo Menard PA-C Admitting Provider: Massiel Nobles MD Attending Provider on Admission: Raciel Genao MD Consults: 12/07/24 08:15 Consult to Gastroenterology Stat Comment: carie for consult GI Consulting Provider: Mandie Caraballo Instructions: carie for consult GI 12/07/24 16:23 Health Equity Referral - Nutrition Routine Comment: Positive screening for nutrition needs. Health Equity Referral - Safety Routine Comment: Positive screening for safety needs. Health Equity Referral - Transportation Routine Comment: Positive screening for transportation needs. Attending Provider on DC: Dr. Genao Discharging Provider: RESIDENT Sharon DS: Diagnosis Problem List Completed Was Problem List Reviewed/Reconciled?: Yes Hospital Course Hospital Course Hospital course: Patient was admitted due to diffuse lower abdominal pain and recurrent vomiting. CT scan did reveal colitis patient also noted to have LOLA (now resolved) Started on aggressive IV fluid resuscitation, empiric antibiotic treatment with levofloxacin and metronidazole., with primary concern for colitis vs IBD. GI was consulted, who recommended colonoscopy. Pt attempted to complete colonoscopy prep with golytely, but had difficulty tolerating the volume and taste of the prep. NG tube trialed in order to complete the colonoscopy prep, however, pt was unable to tolerate the tube due to discomfort. Pt was advised to stay inpatient and try to complete colonoscopy prep in order to evaluate her abdominal pain , however pt decided to leave against medical advice. pt was advised to follow up with her PCP and consider getting colonoscopy in the outpatient setting. She was advised on return precautions should her abdominal pain return. Pending stool cultures collected 12/08, and immunology serologies (ANCA screen, anti Myeloperoxidase, and anti proteinase-3 Diagnoses #Colitis vs IBD #Previous NC #Hypertension #Seziure disorder #Unhoused #Polysubstance use disorder D/c Plan Please follow up with your PCP within 7-10 days Please continue taking home meds as prescribed Return to the ED if you develop new or worsening symptoms Case discussed with my attending Dr. Birgit Sam MD PGY-1 Status at Discharge Cognitive/behavioral status at discharge: fair Time Spent with Patient Time attestation: Total time spent providing and/or coordinating discharge services: Time spent: Greater than 30 minutes Exam Vital Signs Temp Pulse Resp BP Pulse Ox O2 Del Method 97.0 F 70 16 128/77 97 Room Air 12/10/24 16:00 12/10/24 16:49 12/10/24 16:00 12/10/24 16:49 12/10/24 16:00 12/10/24 16:00 Narrative Exam GENERAL: no acute distress, AAO x3, comfortably laying in bed HEENT: Head AT/ NC. CARDIOVASCULAR: well perfused on visual inspection RESPIRATORY: normal work of breathing GASTROINTESTINAL: Abdomen soft,mildly tender to palpation in lower abdomen. Bowel sounds present NEUROLOGICAL: No focal deficits. Sensation intact, symmetric. PSYCHIATRIC: Awake and alert, not agitated, normal mood and affect. SKIN: No obvious rashes, no jaundice Discharge Plan Plan Patient Disposition: Left Against Medical Advice Patient condition on transfer: Stable Care Plan Goals: Please follow up with your PCP within 7-10 days Please continue taking home meds as prescribed Return to the ED if you develop new or worsening symptoms Prescriptions/Referrals Prescriptions/Med Rec: Continued lisinopril-hydrochlorothiazide 20-12.5 mg Tablet 1 tab PO QDAY amlodipine 5 mg Tablet 5 mg PO QDAY carbamazepine [Tegretol] 200 mg Tablet 200 mg PO TID dicyclomine 20 mg tablet 20 mg PO QID PRN (Reason: abdominal pain) Qty: 30 0RF carvedilol 3.125 mg tablet 3.125 mg PO Q12H Patient Comments: TAKE 1 TAB BY MOUTH 2 TIMES A DAY FOR BLOOD PRESSURE magnesium oxide 400 mg (241.3 mg magnesium) tablet 400 mg PO QDAY Patient Comments: TAKE 1 TABLET BY MOUTH EVERY DAY Discontinued meloxicam 7.5 mg tablet 7.5 mg PO QDAY Qty: 10 0RF diclofenac sodium [Voltaren Arthritis Pain] 1 % gel 2 g topical QID Qty: 100 0RF Rx Instructions: apply to single elbow, wrist or hand; for hand includes palm/fingers/back of hand dicyclomine 20 mg tablet 20 mg PO BID Qty: 20 0RF Referrals: Glo Menard PA-C [Primary Care Provider] - Patient/Caregiver Discharge Instructions Discharge Activity: activity as tolerated Education Materials: Abdominal Pain, Colonoscopy, Anatomy of the Digestive System Print Language: Romanian Quality Discharge Quality Measures VTE prophylaxis
[2024-12-11 06:27] LABS: Giardia Result NOT DETECTED
[2024-12-15 06:45] LABS: ANCA Screen NEGATIVE (NEGATIVE); Myeloperoxidase Ab <1.0 AI (<1.0); Proteinase-3 Ab <1.0 AI (<1.0)
[2024-12-15 06:45] LABS: Calprotectin, Stool* 583 mcg/g
== END 2024-12-10 17:06 | disposition left against medical advice (07) | DRG 245 ==
LOC: SERX 08:15 → SERHOLD 11:17 → S3NX 15:20
PROVIDERS: Nurse Practitioner Family; Physician Assistant; Specialist; Admitting Provider Student in an Organized Health Care Education/Training Program; Emergency Provider Emergency Medicine; PCP Physician Assistant; Visit Provider Internal Medicine
DX: K51.911 Ulcerative colitis, unspecified with rectal bleeding (principal); G40.909 Epilepsy, unspecified, not intractable, without status epilepticus; N17.9 Acute kidney failure, unspecified; K57.33 Diverticulitis of large intestine without perforation or abscess with bleeding; Z59.01 Sheltered homelessness; F12.90 Cannabis use, unspecified, uncomplicated; I25.2 Old myocardial infarction; I10 Essential (primary) hypertension; F17.200 Nicotine dependence, unspecified, uncomplicated; F19.10 Other psychoactive substance abuse, uncomplicated; Z79.899 Other long term (current) drug therapy; Z88.5 Allergy status to narcotic agent; Z88.0 Allergy status to penicillin
CPT/HCPCS: 36415; 74176; 80053; 80061; 80307; 81001; 81025; 82270; 83605; 83690; 83735; 83993; 84100; 85025; 85652; 86021; 86036; 86140; 87015; 87040; 87045; 87046; 87205; 87329; 87493; 87899; 93225; 93306; 96361; 96365; 96366; 96367; 96375; 99285; J0696; J1644; J1885; J1956; J2270; J2405; J2470; J3475; J3490; J7030; J7050; Q0162; A9270; J1836

== ENCOUNTER 2024-12-10 20:42 | Inpatient (IN) | payer MEDICAID, SELFPAY ==
[2024-12-10 20:43] VITALS: BMI 21.5
[2024-12-10 21:18] VITALS: BP 122/78; PULSE 87; RESP 18; TEMP 36.9; O2SAT 98
--- NOTE | 2024-12-10 22:06 | PD.RESHP ---
Documentation for date of: 12/10/24 HPI History of Present Illness Chief complaint: GI bleed History of present illness: 54 year old female with past medical history of hypertension, seizure disorder, and polysubstance drug who initially presented to [facility] on 12/07/24 with chief complaint of severe, diffuse, dull abdominal pain since last night associated with bloody diarrhea. Patient was admitted and GI consult was placed for workup for GI bleed. Patient had stool studies ordered and was started on IV antibiotics. Steps were being taken place for colonoscopy prep, earlier during the day patient left AGAINST MEDICAL ADVICE. Patient is presenting back to the ED with similar presentation and would like to be readmitted. Past medical history: As noted above Past surgical history: Back surgery for scoliosis repair Allergies: Codeine and penicillins Medications: Amlodipine 5 mg daily, Coreg 3.125mg BID, lisinopril?HCTZ 20 12.5 daily, carbamazepine 200 mg TID Family Hx: Mother history of kidney disease and FL. Father has history of FL Social: Currently homeless. History of marijuana use, denies alcohol use, previous history of smoking but quit 1 year ago after her heart attack. Denied illicit drug use but U tox positive for methamphetamines. ROS: All 12 systems assessed and the patient denies unless otherwise stated in HPI. In the ED, patient presented with stable vitals, no labs were ordered as the patient had recent blood work from past admission. Patient will be readmitted for GI bleed workup and will be on clear liquid and GoLytely prep for colonoscopy. Exam Vital Signs Temp Pulse Resp BP Pulse Ox O2 Del Method 98.5 F 87 18 122/78 98 Room Air 12/10/24 21:18 12/10/24 21:18 12/10/24 21:18 12/10/24 21:18 12/10/24 21:18 12/10/24 21:18 Narrative Exam Physical Exam: GENERAL: no acute distress, AAO x3, comfortably laying in bed HEENT: Head AT/ NC. CARDIOVASCULAR: well perfused on visual inspection RESPIRATORY: normal work of breathing GASTROINTESTINAL: Abdomen soft,mildly tender to palpation in lower abdomen. Bowel sounds present NEUROLOGICAL: No focal deficits. Sensation intact, symmetric. PSYCHIATRIC: Awake and alert, not agitated, normal mood and affect. SKIN: No obvious rashes, no jaundice Quality Measures Quality Measures VTE prophylaxis Medications Home Medications and Allergies Home Medications ?Medication ?Instructions ?Recorded ?Confirmed ?Type amlodipine 5 mg tablet 5 mg PO QDAY 08/08/20 12/10/24 History carbamazepine 200 mg tablet 200 mg PO TID 08/08/20 12/10/24 History (Tegretol) lisinopril 20 1 tab PO QDAY 08/08/20 12/10/24 History mg-hydrochlorothiazide 12.5 mg tablet carvedilol 3.125 mg tablet 3.125 mg PO Q12H 12/07/24 12/10/24 History magnesium oxide 400 mg (241.3 mg 400 mg PO QDAY 12/07/24 12/10/24 History magnesium) tablet omeprazole 20 mg capsule,delayed 20 mg PO DAILY 12/10/24 12/10/24 History release Allergies Allergy/AdvReac Type Severity Reaction Status Date / Time codeine Allergy Severe Vomiting Verified 12/10/24 20:43 Penicillins Allergy Severe Rash Verified 12/10/24 20:43 Assessment & Plan Plan 54 year old female with past medical history of hypertension, seizure disorder, and polysubstance drug who initially presented to [facility] on 12/07/24 with chief complaint of severe, diffuse, dull abdominal pain since last night associated with bloody diarrhea will be readmitted for GI bleed workup and will be on clear liquid and GoLytely prep for colonoscopy. #Colitis vs IBD #Leukocytososis-RESOLVED Ddx: inflammatory from IBD, antibiotic use, infectious causes. Leukocytosis most likely reactive in setting of underlying inflammation. Chief concern of severe, diffuse, dull abdominal pain for 1 day. Pain is 6/10 and associated with bloody diarrhea. She has experienced this pain 1 month ago but never worked up for it. Denies any colonoscopies in the past. CT A/P CT abdomen pelvis revealed colon wall thickening and inflammatory changes on noncontrast study. WBC 17.8, Hb stable 16, Cr 1.4. -GI Dr. Caraballo consulted, appreciate recs -encourage oral intake ?clear liquid diet advance as tolerated -Zofran -Restart IV abx if necessary #Previous FL She had an FL one year ago and was transferred to [facility] where she had anigogram done. Per patient, there was some blockage but she does not recall getting any stents placed. 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 Denies any chest pain, shortness of breath, lower extremity swelling on this admission. ASCVD: high risk, needs high intensity statin ? Echo pending? ?started aspirin 81 mg daily ? Atorvastatin 40 mg daily #Hypertension While inpatient, SBP have been elevated to 150s, home meds resumed. CTM BP. -Amlodipine 5 mg daily -Coreg 3.125mg BID -lisinopril?HCTZ 20 12.5 daily #Seziure disorder Denies having any seizure-like activity in the past couple of years. Does not follow with any neurologist. States that she was started on carbamazepine 200 mg TID by PCP. ? carbamezepine, 200 mg TID ? Seizure precautions as needed #Unhoused #Polysubstance use disorder Currently staying with a friend but otherwise is unhoused. Endorses smoking marijuana, denies alcohol use, previous history of smoking but quit 1 year ago after her heart attack. Denied illicit drug use but U tox positive for methamphetamines and THC. -social media coordinator consult -children's counselor patient Health Maintenance: Lines: PIV Diet: clear liquid, GoLytely prep for colonoscopy GI prophylaxis: Not needed DVT prophylaxis: SCD Dispo: GoLytely prep for colonoscopy, readmitted after leaving AMA Code: Full Patient seen and examined with attending Dr. Marcy Ledezma, DO PGY-2 Internal Medicine - GME Attending Provider Attestation/Addendum 53-year-old female with coronary artery disease, history of FL, seizure disorder, hypertension, polysubstance use who signed out AGAINST MEDICAL ADVICE earlier today came back. The patient is being admitted for abdominal pain and bloody diarrhea. GI evaluation pending. White count is 8500 hemoglobin 11.6. Continue monitoring of hemodynamic status. Patient instructed to be compliant with treatment. I discussed with and supervised the resident physician who took care of this patient. I agree with the assessment and plan as above.
[2024-12-11] VITALS: BP 155/90; PULSE 75; PULSE 76; RESP 18; TEMP 36.1; O2SAT 98
--- NOTE | 2024-12-11 00:29 | PD.EDABDPN ---
ED Abdominal Pain RME/HPI General Chief Complaint: GI Bleed Stated complaint: RECTAL BLEEDING Time seen by provider: 12/10/24 21:29 Arrival date/time: 12/10/24 20:42 54F with history of HTN, drug use, and CAD presents to ED wanting to be readmitted. Patient AMA'd this morning because she didn't want to drink the colon prep for colonoscopy. Patient states she will now. Limitations: no limitations Related Data Home Medications ?Medication ?Instructions ?Recorded ?Confirmed amlodipine 5 mg tablet 5 mg PO QDAY 08/08/20 12/10/24 carbamazepine 200 mg tablet 200 mg PO TID 08/08/20 12/10/24 (Tegretol) lisinopril 20 1 tab PO QDAY 08/08/20 12/10/24 mg-hydrochlorothiazide 12.5 mg tablet carvedilol 3.125 mg tablet 3.125 mg PO Q12H 12/07/24 12/10/24 magnesium oxide 400 mg (241.3 mg 400 mg PO QDAY 12/07/24 12/10/24 magnesium) tablet omeprazole 20 mg capsule,delayed 20 mg PO DAILY 12/10/24 12/10/24 release Previous Rx's ?Medication ?Instructions ?Recorded dicyclomine 20 mg tablet 20 mg PO QID PRN abdominal pain 11/08/22 #30 tabs Allergies Allergy/AdvReac Type Severity Reaction Status Date / Time codeine Allergy Severe Vomiting Verified 12/10/24 20:43 Penicillins Allergy Severe Rash Verified 12/10/24 20:43 Review of Systems Review of Systems Systems Reviewed: All systems reviewed, normal except as documented Constitutional Constitutional: Reports system reviewed and no additional complaints, except as documented, Denies fever(s) and Denies headache(s) ENT Ears, Nose, Mouth, and Throat: Denies disequilibrium and Denies headache(s) Cardiovascular Cardiovascular: Reports system reviewed and no additional complaints, except as documented, Denies chest pain and Denies dyspnea Respiratory Respiratory: Reports system reviewed and no additional complaints, except as documented, Denies cough and Denies dyspnea Gastrointestinal Gastrointestinal: Reports system reviewed and no additional complaints, except as documented, Reports as per HPI, Reports abdominal pain, Denies nausea and Denies vomiting Neurologic Neurologic: Reports system reviewed and no additional complaints, except as documented, Denies confusion, Denies disequilibrium and Denies headache(s) Psychiatric Psychiatric: Denies confusion Past Medical History Past Medical History NEUROLOGIC: Positive Neurological Disorders and Seizures CARDIAC: Positive Cardiac Disorders, Hypercholesterolemia and Hypertension; Negative Congestive Heart Failure RESPIRATORY: Negative Chronic Obstructive Pulmonary Disease (COPD) or Asthma GASTROINTESTINAL: Positive Gastrointestinal Disorders and Gastroesophageal Reflux Disease GENITOURINARY: Negative Renal Disease MUSCULOSKELETAL: Positive Musculoskeletal Disorders and Scoliosis ENDOCRINE: Negative Diabetes Mellitus Type 1 or Diabetes Mellitus Type 2 HEMATOLOGIC: Negative Sickle Cell Disease OTHER HISTORY: Negative Blood Transfusions, Blood Transfusion Reaction or Anesthesia Reactions Surgical History SURGICAL: Negative Endocrine Surgery, Abdominal Surgery or Nephrectomy Social History SMOKING STATUS: Never smoker SUBSTANCE USE: does not use ED Exam General Limitations: Present no limitations General appearance: Present alert and in no apparent distress Head Head exam: Present atraumatic Eye Eye exam: Present normal appearance, PERRL and EOMI ENT ENT exam: Present normal exam, normal oropharynx and mucous membranes moist Neck Neck exam: Present normal inspection, full ROM and trachea midline Chest Chest inspection: Present normal inspection and symmetric chest wall rise Respiratory Respiratory exam: Present normal lung sounds bilaterally Cardiovascular Cardiovascular exam: Present regular rate, normal rhythm and normal heart sounds Abdominal Exam Abdominal exam: Present soft and normal bowel sounds Extremities Exam Extremities exam: Present normal inspection and full ROM Back Exam Back exam: Present normal inspection and full ROM Neurological Exam Neurological exam: Present alert, oriented X3 and CN II-XII intact Psychiatric Psychiatric exam: Present normal affect and normal mood Skin Skin exam: Present warm, dry, intact and normal color Course Quality Measures none Orders Category Date Time Status Admit to Inpatient Status Routine Admission 12/10/24 22:05 Active Patient Condition Routine Admission 12/10/24 22:05 Ordered Activity as Tolerated Routine Care 12/10/24 22:05 Ordered COVID-19 Screening Questionnaire NOW Care 12/10/24 21:30 Active Decision to Admit X1 Care 12/10/24 21:30 Completed Flu & Pneumonia Vaccine Screen ONCE Care 12/10/24 22:04 Active NPO NOW Care 12/10/24 22:06 Active Notify provider NEEDED Care 12/10/24 22:05 Active Sequential Compression Device QSHIFT Care 12/10/24 22:04 Active CBC AM DRAW Lab 12/11/24 05:00 Ordered CBC AM DRAW Lab 12/12/24 05:00 Ordered CBC AM DRAW Lab 12/13/24 05:00 Ordered Comprehensive Metabolic Panel AM DRAW Lab 12/11/24 05:00 Ordered Comprehensive Metabolic Panel AM DRAW Lab 12/12/24 05:00 Ordered Comprehensive Metabolic Panel AM DRAW Lab 12/13/24 05:00 Ordered Magnesium AM DRAW Lab 12/11/24 05:00 Ordered Phosphorous AM DRAW Lab 12/11/24 05:00 Ordered Code Status Routine Oth 12/10/24 22:04 Ordered Vital Signs Vital signs: Vital Signs Temperature 98.5 F 12/10/24 21:18 Pulse Rate 87 12/10/24 21:18 Respiratory Rate 18 12/10/24 21:18 Blood Pressure 122/78 12/10/24 21:18 Pulse Oximetry (%) 98 12/10/24 21:18 Oxygen Delivery Method Room Air 12/10/24 21:18 O2 at 98% on RA and WNLs Abdominal Pain MDM MDM Narrative MDM Narrative:: 54F with history of HTN, drug use, and CAD presents to ED wanting to be readmitted. Patient AMA'd this morning because she didn't want to drink the colon prep for colonoscopy. Patient states she will now. Physical exam reveals female who appears to be in pain. Patient is afebrile, calm, and alert. Spoke to IM resident who reports to Dr. Vidal who will admit the patient. Patient data External records reviewed:: [facility] previous records Clinical information provided by:: patient Social determinants that could affect healthcare access:: substance use Patient has the following chronic illnesses:: HTN, drug use, and CAD How is presenting disease/condition affected by chronic disease/condition?: exacerbated by Evaluation data The following diagnostics were reviewed and interpreted by me:: other (specify) (none) Lab and/or radiology exams considered but not ordered:: not ordered Interpretation Summary: n/a Medications / Prescriptions Medications or Prescriptions considered but not ordered:: ordered Medication administrations:: Medication Administration History Acetaminophen (Acetaminophen 325 Mg Tablet) 325 mg PO Q4HR PRN PRN Reason: PAIN OR FEVER > 101 Stop: 01/09/25 23:36 Amlodipine Besylate (Amlodipine Besylate 5 Mg Tablet) 5 mg PO QDAY SANDRA Stop: 01/10/25 08:59 Aspirin (Aspirin Ec 81 Mg Tabec) 81 mg PO QDAY SANDRA Stop: 01/10/25 08:59 Atorvastatin Calcium (Atorvastatin Calcium 20 Mg Tablet) 40 mg PO HS SANDRA Stop: 08/02/25 20:59 Carbamazepine (Carbamazepine 100 Mg Chew) 200 mg PO TID SANDRA Stop: 01/10/25 05:59 Carvedilol (Carvedilol 3.125 Mg Tablet) 3.125 mg PO BIDWM [facility] Stop: 01/10/25 07:59 Ondansetron HCl (Ondansetron Inj 2 Mg/Ml Inj 2 Ml) 4 mg IVP Q6HR PRN; Protocol PRN Reason: NAUSEA OR VOMITING Stop: 01/09/25 22:24 Polyethylene Glycol/Electrolytes (Na Loyd/Nahco3/Messi/Peg (Golytely) 4,000 Ml Btl) 4,000 ml PO X1 ONE Stop: 12/11/24 08:01 above Consultations Consultation(s) initiated? (list below): Yes Diagnosis Differential diagnosis abdominal pain: abdominal pain, acute appendicitis, calculus of kidney, constipation, diverticulitis, endometriosis, gastroenteritis, pancreatitis and small bowel obstruction Most likely diagnosis given after review of the tests above:: ab pain Admission Indicated Admission indicated?: indicated Admission Request Was there a request for admission?: Yes Admission Attestation Admission request attestation: Discussed case with [Dr. Vidal] from Hospitalist service regarding admission. Discussed patients ED course, exam findings, labs, and radiology results. The Hospitalist [agrees] to accept the patient for admission. Disposition Plan Disposition Plan: Admit Discharge Plan Plan Patient Disposition: Admit Acute Care w/in Hospital Patient condition on transfer: Stable Problem List Clinical Impression: Abdominal pain
[2024-12-11 04:00] VITALS: BP 148/82; PULSE 78; PULSE 80; RESP 18; TEMP 36.1; O2SAT 98
[2024-12-11 05:55] VITALS: BMI 21.8
[2024-12-11 06:20] LABS: Basophils # (Auto) 0.0 Thou/mm3 (0.0-0.2); Basophils % (Auto) 1 % (0-2.5); Eosinophils # (Auto) 0.1 Thou/mm3 (0.0-0.5); Eosinophils % (Auto) 1 % (0-10); Hematocrit 33.4 % (36.0-46.0); Hemoglobin 11.3 g/dL (12.0-16.0); Immature Granulocytes Auto 0.02 Thou/mm3 (0.00-0.00); Lymphocytes # (Auto) 2.0 Thou/mm3 (1.0-4.8); Lymphocytes % (Auto) 34 % (10-50); Mean Corpuscular HGB Conc 33.8 g/dl (31.0-37.0); Mean Corpuscular Hemoglobin 31.3 pg (25.0-35.0); Mean Corpuscular Volume 93 fL (80-100); Monocytes # (Auto) 0.8 Thou/mm3 (0.0-0.8); Monocytes % (Auto) 13 % (0-12); Neutrophils # (Auto) 3.0 Thou/mm3 (1.8-7.7); Neutrophils % (Auto) 51 % (37-80); Nucleated Red Blood Cell # 0.00 Thou/mm3 (0.00-0.00); Nucleated Red Blood Cell % 0 /100 WBC (0); Platelet Count 185 Thou/mm3 (140-440); RDW Standard Deviation 43.0 fL (36.4-46.3); Red Blood Count 3.61 Miln/mm3 (4.00-5.20); White Blood Count 5.8 Thou/mm3 (3.6-11.0)
[2024-12-11 06:52] LABS: Alanine Aminotransferase 26 U/L (10-49); Albumin, Serum 3.6 gm/dL (3.5-5.0); Albumin/Globulin Ratio 1.5 (1.2-2.2); Alkaline Phosphatase 92 U/L (46-116); Anion Gap 8 (7-16); Aspartate Amino Transferase 25 U/L (0-34); BUN/Creatinine Ratio 13 Ratio (12-20); Bilirubin,Total 0.2 mg/dL (0.3-1.2); Blood Urea Nitrogen 9 mg/dL (9-23); Calcium 8.7 mg/dL (8.3-10.6); Calcium (Corrected) 9.0 mg/dL (8.5-10.1); Carbon Dioxide 30.4 mMol/L (20.0-31.0); Chloride 104 mMol/L (98-107); Creatinine (Component) 0.7 mg/dL (0.6-1.3); Estimated Creatinine Clearance 73.5 mL/min (>60); Globulin 2.4 gm/dL (2.3-3.5); Glucose 104 mg/dL (74-106); Magnesium 1.7 mg/dL (1.6-2.6); Osmolality,Calculated 281 (275-295); Phosphorous 3.6 mg/dL (2.4-5.1); Potassium 3.7 mMol/L (3.4-5.1); Sodium 142 mMol/L (136-145); Total Protein 6.0 gm/dL (5.7-8.2); eGFR > 60 See Note
[2024-12-11 08:00] VITALS: BP 163/90; PULSE 69; RESP 18; TEMP 36.1; O2SAT 95
[2024-12-11 08:15] VITALS: BP 148/82; PULSE 80
[2024-12-11] MEDS: NA SU/NAHCO3/KC/PEG (Golytely) 4,000 ML BTL 4000 ML PO (08:15)
[2024-12-11 08:23] VITALS: BP 148/82; PULSE 80
[2024-12-11] MEDS: ASPIRIN EC 81 MG TABEC PO (08:23)
--- NOTE | 2024-12-11 09:25 | PD.RESPRO ---
Documentation for date of: 12/11/24 Subjective Subjective Interval history: No acute events overnight pt had left AMA on 12/10, was readmitted overnight for lower abdominal pain. Pt trying to complete golytely prep Exam Vital Signs Temp Pulse Resp BP Pulse Ox O2 Del Method 96.9 F 80 18 148/82 H 95 Room Air 12/11/24 08:00 12/11/24 08:23 12/11/24 08:00 12/11/24 08:23 12/11/24 08:00 12/11/24 08:00 Narrative Exam GENERAL: no acute distress, AAO x3, comfortably laying in bed HEENT: Head AT/ NC. CARDIOVASCULAR: well perfused on visual inspection RESPIRATORY: normal work of breathing GASTROINTESTINAL: Abdomen soft,mildly tender to palpation in lower abdomen. Bowel sounds present, no rebound, no guarding NEUROLOGICAL: No focal deficits. Sensation intact, symmetric. PSYCHIATRIC: Awake and alert, not agitated, normal mood and affect. SKIN: No obvious rashes, no jaundice Objective Labs 12/11/24 05:14 12/11/24 05:14 Labs: Laboratory Results - last 24 hr 12/11/24 05:14 WBC 5.8 RBC 3.61 L Hgb 11.3 L Hct 33.4 L MCV 93 MCH 31.3 MCHC 33.8 RDW Std Deviation 43.0 Plt Count 185 Neut % (Auto) 51 Lymph % (Auto) 34 Faulkner % (Auto) 13 H Eos % (Auto) 1 Baso % (Auto) 1 Neut # (Auto) 3.0 Lymph # (Auto) 2.0 Faulkner # (Auto) 0.8 Eos # (Auto) 0.1 Baso # (Auto) 0.0 Immature Gran # (Auto) 0.02 H Absolute Nucleated RBC 0.00 Immature Gran % 0 Nucleated RBC % 0 Sodium 142 Potassium 3.7 Chloride 104 Carbon Dioxide 30.4 Anion Gap 8 BUN 9 Creatinine 0.7 Estim Creat Clear Calc 73.5 eGFR > 60 BUN/Creatinine Ratio 13 Glucose 104 Calculated Osmolality 281 Calcium 8.7 Corrected Calcium 9.0 Phosphorus 3.6 Magnesium 1.7 Total Bilirubin 0.2 L AST 25 ALT 26 Alkaline Phosphatase 92 Total Protein 6.0 Albumin 3.6 Globulin 2.4 Albumin/Globulin Ratio 1.5 Quality Measures Quality Measures none Assessment & Plan Assessment Current Active Medications: Generic Name Dose Route Start Last Admin Trade Name Freq PRN Reason Stop Dose Admin Acetaminophen 325 mg 12/10/24 23:37 Acetaminophen 325 Mg Tablet PO 01/09/25 23:36 Q4HR PRN PAIN OR FEVER > 101 Amlodipine Besylate 5 mg 12/11/24 09:00 12/11/24 08:23 Amlodipine Besylate 5 Mg Tablet PO 01/10/25 08:59 5 mg QDAY SANDRA Administration Aspirin 81 mg 12/11/24 09:00 12/11/24 08:23 Aspirin Ec 81 Mg Tabec PO 01/10/25 08:59 81 mg QDAY SANDRA Administration Atorvastatin Calcium 40 mg 12/11/24 21:00 Atorvastatin Calcium 20 Mg Tablet PO 01/10/25 20:59 HS SANDRA Carbamazepine 200 mg 12/11/24 06:00 12/11/24 07:07 Carbamazepine 100 Mg Chew PO 01/10/25 05:59 200 mg TID SANDRA Administration Carvedilol 3.125 mg 12/11/24 08:00 12/11/24 08:15 Carvedilol 3.125 Mg Tablet PO 01/10/25 07:59 3.125 mg BIDWM SANDRA Administration Ondansetron HCl 4 mg 12/10/24 22:25 Ondansetron Inj 2 Mg/Ml Inj 2 Ml IVP 01/09/25 22:24 Q6HR PRN NAUSEA OR VOMITING Protocol Plan Smita Jalloh is 54 yr woman with PMH of HTN, seizure disorder, and polysubstance drug use, who presented to the ED 12/07 with chief concern for 1 day of severe, diffuse, dull abdominal pain. GI Dr. Caraballo consulted and patient was admitted for management of colitis vs IBD #Colitis vs IBD #Leukocytososis-RESOLVED Ddx: inflammatory from IBD, antibiotic use, infectious causes. Leukocytosis most likely reactive in setting of underlying inflammation. Chief concern of severe, diffuse, dull abdominal pain for 1 day. Pain is 6/10 and associated with bloody diarrhea. She has experienced this pain 1 month ago but never worked up for it. Denies any colonoscopies in the past. CT A/P CT abdomen pelvis revealed colon wall thickening and inflammatory changes on noncontrast study. WBC 17.8, Hb stable 16, Cr 1.4. -GI Dr. Caraballo consulted, appreciate recs Dx - Stool cultures: no enteric pathogens - pending immunology ANCA, antiproteinase 3, antimyeloperoxidase Tx -encourage oral intake ?clear liquid diet advance as tolerated -Zofran #Previous [place] She had an [place] one year ago and was transferred to [facility] where she had anigogram done. Per patient, there was some blockage but she does not recall getting any stents placed. [employer] is also located in [place]. Denies any chest pain, shortness of breath, lower extremity swelling on this admission. ASCVD: high risk, needs high intensity statin ? Echo unremarkable ?started aspirin 81 mg daily ? Atorvastatin 40 mg daily #Hypertension While inpatient, SBP have been elevated to 150s, home meds resumed. CTM BP. -Amlodipine 5 mg daily -Coreg 3.125mg BID -lisinopril?HCTZ 20 12.5 daily #Seziure disorder Denies having any seizure-like activity in the past couple of years. Does not follow with any neurologist. States that she was started on carbamazepine 200 mg TID by PCP. ? carbamezepine, 200 mg TID ? Seizure precautions as needed #Unhoused #Polysubstance use disorder Currently staying with a friend but otherwise is unhoused. Endorses smoking marijuana, denies alcohol use, previous history of smoking but quit 1 year ago after her heart attack. Denied illicit drug use but U tox positive for methamphetamines and THC. -sr. social media & mobile manager consult -rehabilitation services counselor patient Health maintenance: Dispo: medsurg dx of colitis vs ibd, pending colonoscopy DIET: clear liquid, Advance as tolerated DVT prophylaxis: Subq heparin BID GI ppx: Pantoprozole 40mg IV Qd CODE STATUS: Full code The patient's management plan was discussed with my attending physician Dr. Genao. Elayne Sam, PGY-1
[2024-12-11] MEDS: Magnesium Sulfate 2 GM Ivpb 2 GM/50 ML BAG IV (10:38)
[2024-12-11] MEDS: POTASSIUM CHLORIDE 10% 20 MEQ/15 ML UDC GT (10:39)
[2024-12-11 12:00] VITALS: BP 152/91; PULSE 71; RESP 16; TEMP 36.4; O2SAT 96
--- NOTE | 2024-12-11 12:08 | PC.SS ---
SS follow up note; Patient is pending a Colonoscopy. Patient will return back home when medically cleared.
--- NOTE | 2024-12-11 13:50 | PC.NURSE ---
I was notified by charge nurse Aris my patient had left the floor. I went to check patients room and patient was gone. IV was out I had removed it because it had infiltrated. Notified the doctors patient had left no IVs in patient.
--- NOTE | 2024-12-11 18:01 | PD.RESEVENT ---
Documentation for date of: 12/11/24 Event Note Event Note: Ms. Jalloh left the hospital AGAINST MEDICAL ADVICE today. Primary team was not informed that patient had left the hospital. Per nursing, lines were removed prior to pt leaving the hospital. MD team became aware that pt had left the hospital at 1800. pt had also left AMA on 12/10/24 while pending completion of colonoscopy prep with golytely. Case discussed with my Senior Dr.Torsten Sam MD PGY-1
--- NOTE | 2024-12-11 18:06 | ESDS_ITS ---
<Statement entered by Raciel Genao MD - 12/14/24 15:01> I have discussed and was present for the essential components of the history, physical examination, diagnosis, and treatment plan with the resident. I agree with the patient's care as documented by the resident and amended herein by me. Raciel Genao MD FACP. Planned Discharge Date 12/11/24 DS: Providers Provider Date of admission: 12/10/24 22:05 Primary care physician: Physician No Primary/Family Admitting Provider: Tru Vidal MD Attending Provider on Admission: Raciel Genao MD Attending Provider on DC: Raciel Genao MD Discharging Provider: RESIDENT Sharon DS: Diagnosis Problem List Completed Was Problem List Reviewed/Reconciled?: Yes Hospital Course Hospital Course Hospital course: Pt had left AMA on 12/10, was readmitted overnight for lower abdominal pain. Pt was trying to complete golytely prep with plan for colonoscopy, however she left AMA again on 12/11 without MDs aware that she was going to leave. Pt not counseled on 12/11 on return precautions prior to leaving AMA. Pleas reference DC summary from 12/10 for more detailed hospital course from initial hospitalization for intractable abdominal pain. Pending immunology serologies (ANCA screen, anti Myeloperoxidase, and anti proteinase-3 Dx #Colitis vs IBD #Previous OK #Hypertension #Seziure disorder #Unhoused #Polysubstance use disorder D/c Plan Please follow up with your PCP within 7-10 days Please continue taking home meds as prescribed Return to the ED if you develop new or worsening symptom Case discussed with my attending Dr Genao . Elayne Sam MD PGY-1 Patient seen and examined at bedside, no acute overnight events. I discussed and supervised with the pharmacy intern physician who took care of this patient. I personally saw and examined the patient. I agree with most of the assessment and plan. Plan of care discussed with attending Dr. Genao. Luis Fernando Sánchez MD PGY-2 Time Spent with Patient Time attestation: Total time spent providing and/or coordinating discharge services: Time spent: Greater than 30 minutes Exam Vital Signs Temp Pulse Resp BP Pulse Ox O2 Del Method 97.6 F 71 16 152/91 H 96 Room Air 12/11/24 12:00 12/11/24 12:00 12/11/24 12:00 12/11/24 12:00 12/11/24 12:00 12/11/24 12:00 Narrative Exam GENERAL: no acute distress, AAO x3, comfortably laying in bed HEENT: Head AT/ NC. CARDIOVASCULAR: well perfused on visual inspection RESPIRATORY: normal work of breathing GASTROINTESTINAL: Abdomen soft,mildly tender to palpation in lower abdomen. Bowel sounds present NEUROLOGICAL: No focal deficits. Sensation intact, symmetric. PSYCHIATRIC: Awake and alert, not agitated, normal mood and affect. SKIN: No obvious rashes, no jaundice Discharge Plan Plan Patient Disposition: Left Against Medical Advice Patient condition on transfer: Stable Prescriptions/Referrals Prescriptions/Med Rec: No Action lisinopril-hydrochlorothiazide 20-12.5 mg Tablet 1 tab PO QDAY amlodipine 5 mg Tablet 5 mg PO QDAY carbamazepine [Tegretol] 200 mg Tablet 200 mg PO TID omeprazole 20 mg capsule,delayed release(DR/EC) 20 mg PO DAILY Patient Comments: TAKE 1 CAPSULE BY MOUTH 1 TIME A DAY 30 MINS BEFORE MEALS FOR STOMACH dicyclomine 20 mg tablet 20 mg PO QID PRN (Reason: abdominal pain) Qty: 30 0RF carvedilol 3.125 mg tablet 3.125 mg PO Q12H Patient Comments: TAKE 1 TAB BY MOUTH 2 TIMES A DAY FOR BLOOD PRESSURE magnesium oxide 400 mg (241.3 mg magnesium) tablet 400 mg PO QDAY Patient Comments: TAKE 1 TABLET BY MOUTH EVERY DAY Patient/Caregiver Discharge Instructions Print Language: Andorran Quality Discharge Quality Measures none
== END 2024-12-11 13:23 | disposition left against medical advice (07) | DRG 249 ==
LOC: SERX 22:42 → SERHOLD 22:51 → S3SX 12-11 00:29 → SERHOLD 12-11 05:37
PROVIDERS: Admitting Provider Internal Medicine; Emergency Provider Emergency Medicine; Visit Provider Internal Medicine
DX: K52.9 Noninfective gastroenteritis and colitis, unspecified (principal); I10 Essential (primary) hypertension; G40.909 Epilepsy, unspecified, not intractable, without status epilepticus; Z59.00 Homelessness unspecified; I25.2 Old myocardial infarction; F12.90 Cannabis use, unspecified, uncomplicated; I25.10 Atherosclerotic heart disease of native coronary artery without angina pectoris; F19.10 Other psychoactive substance abuse, uncomplicated; Z79.899 Other long term (current) drug therapy; Z88.0 Allergy status to penicillin; Z88.5 Allergy status to narcotic agent; Z53.29 Procedure and treatment not carried out because of patient's decision for other reasons
CPT/HCPCS: 36415; 80053; 80307; 83735; 84100; 85025; 87081; 93225; 99285; J3475; A9270